=== PATIENT | male | born 1970 | race American Indian/Alaskan Native ===

== ENCOUNTER 2016-12-01 09:52 | Emergency (ER) | payer BC ==
[2016-12-01 12:40] VITALS: BP 156/91
--- NOTE | 2016-12-01 13:11 | Emergency Department Report ---
Entered by MADAY REGALADO, acting as scribe for DAYA PENN PA. - General Chief Complaint: Upper Respiratory Infection Stated Complaint: CHEST PAIN /COLD SX Time Seen by Provider: 12/01/16 12:27 Source: patient Mode of arrival: Ambulatory Limitations: No Limitations - History of Present Illness Initial Comments: 46 y/o male with no significant PMHx, presents to the ED c/o productive cough with white sputum beginning 1 week ago and worsening 3 days ago. The patient states he has Hx of seasonal allergies. Associated symptoms of post-nasal drip, itchy throat, and ear pressure, but he denies night sweats, nausea, vomiting, SOB, wheezing, chest pain, abdominal pain, numbness, weakness, or headache. Patient has been taking OTC nyquil/dayquil for the symptoms with mild alleviation. MD Complaint: cough (productive with white sputum) -: week(s) (1 week ago, became worse 3 days ago) Severity scale (0 -10): 7 Consistency: constant Improves With: OTC cold medicine (Nyquil/Dayquil, mild alleviation) Worsens With: nothing Context: other (patient has Hx of seasonal allergies) Associated Symptoms: cough (productive with white sputum), other (post nasal drainage, itchy throat, ear pressure). denies: fever, chills, myalgias, diaphoresis, headache, nasal congestion, sore throat, stiff neck, chest pain, shortness of breath, abdominal pain, nausea, vomiting, diarrhea, dysuria, rash, right sweats, ear pain Treatments Prior to Arrival: none - Related Data Previous Rx's Medication Instructions Recorded Last Taken Type Loratadine [Claritin] 10 mg PO DAILY #030 tablet 12/01/16 Unknown Rx Promethazine /Codeine 10 ml PO Q6H PRN #150 udc 12/01/16 Unknown Rx [Phenergan/Codeine 6.25-10 mg/5 ml] Allergies Allergy/AdvReac Type Severity Reaction Status Date / Time No Known Allergies Allergy Unverified 12/01/16 09:59 ED Review of Systems Comment: All other systems reviewed and negative Constitutional: denies: chills, fever ENT: other (ear pressure, itchy throat). denies: ear pain, throat pain Respiratory: cough (productive cough with white sputum). denies: shortness of breath, wheezing Cardiovascular: denies: chest pain Endocrine: denies: excessive sweating Gastrointestinal: denies: abdominal pain, nausea, vomiting, diarrhea Genitourinary: denies: dysuria Skin: denies: rash Neurological: denies: headache, weakness, numbness ED Past Medical Hx - Past Medical History Previous Medical History?: No - Surgical History Past Surgical History?: No - Social History Smoking Status: Never Smoker Substance Use Type: None - Medications Home Medications: Home Medications Medication Instructions Recorded Confirmed Last Taken Type Loratadine [Claritin] 10 mg PO DAILY #030 tablet 12/01/16 Unknown Rx Promethazine /Codeine 10 ml PO Q6H PRN #150 udc 12/01/16 Unknown Rx [Phenergan/Codeine 6.25-10 mg/5 ml] ED Physical Exam - General Limitations: No Limitations - Other Other exam information: GENERAL: Patient is alert and oriented x 3. No apparent distress, normal gait, atraumatic. HEAD: Head is normocephalic and atraumatic. EYES: Extraocular movements are intact. Pupils are equal, round, and reactive to light and accommodation. EARS: Symmetrical, atraumatic, non tender, ear canal clear with moderate cerumen , tympanic membrane non inflamed. Gross auditory nml bilaterally. NOSE: Nose symmetrical, nontender. Nares appeared normal. MOUTH:Mouth is well hydrated and without lesions. Mucous membranes are moist. Uvula midline. Tongue not elevated. Posterior pharynx clear, no exudate or lesions. Tonsils are not erythematous or swollen. Patent airway. Noted is some post-nasal drainage. NECK: Supple. Non edematous, no carotid bruits. No lymphadenopathy or thyromegaly. LUNGS: Symmetrical with respiration. No wheezing, rales or crackles, CTAB. HEART: Regular rate and rhythm with normal S1/S2 present. No murmurs, rubs, or gallops. ABDOMEN: Soft, nondistended. Nontender to palpation on all quadrants. No organomegaly was noted. Positive bowel sounds. No CVA tenderness. EXTREMITIES/MUSCULOSKELETAL: No cyanosis, clubbing, rash, lesions or edema. Full ROM bilaterally. UE/LE Pulses 2+ bilaterally. LE and UE 5+ strength bilaterally SKIN: Warm and dry. No lesions, ulceration or induration present NEUROLOGIC: No focal deficit., ED Course Vital Signs 12/01/16 12/01/16 09:58 12:39 Temperature 98.4 F 98.3 F Pulse Rate 79 88 Respiratory 18 18 Rate Blood Pressure 136/85 Blood Pressure 156/91 [Left] O2 Sat by Pulse 98 100 Oximetry ED Medical Decision Making - Medical Decision Making Patient was evaluated by the provider in fast track. 46 y/o male presents complaining of productive cough with white sputum beginning 1 week ago and worsening 3 days ago. Patient notes Hx of seasonal allergies and similar symptoms. Imaging is not necessary following patient's exam and Hx. Discussed with patient to follow up with a PCP as referred, and to return to the ED if his symptoms return or worsen. Patient states understanding and will follow instructions. Vital signs of stable and patient is in no acute distress. ED Disposition Clinical Impression: URI (upper respiratory infection) Qualifiers: URI type: unspecified URI Qualified Code(s): J06.9 - Acute upper respiratory infection, unspecified Disposition: DISCHARGED TO HOME OR SELFCARE Is pt being admited?: No Does the pt Need Aspirin: No Condition: Stable Instructions: Viral Syndrome (ED) Additional Instructions: Please take medication as prescribed and follow up with her primary care provider if symptoms persist or get worse Prescriptions: Loratadine [Claritin] 10 mg PO DAILY #030 tablet Promethazine /Codeine [Phenergan/Codeine 6.25-10 mg/5 ml] 10 ml PO Q6H PRN #150 udc PRN Reason: cough Referrals: PRIMARY CARE, [Primary Care Provider] - 3-5 Days Forms: Work/School Release Form(ED) This documentation as recorded by the SABINE tafoya GRACE,accurately reflects the service I personally performed and the decisions made by ,DAYA PENN PA.
== END 2016-12-01 13:12 | disposition home or self-care (01) ==
LOC: ED 09:52
DX: J06.9 Acute upper respiratory infection, unspecified (principal)
CPT/HCPCS: 99282

== ENCOUNTER 2016-12-06 10:38 | Emergency (ER) | payer BC ==
[2016-12-06 12:11] VITALS: BP 138/85
--- NOTE | 2016-12-06 16:03 | Emergency Department Report ---
- General Chief Complaint: Upper Respiratory Infection Stated Complaint: COUGH AND COLD Time Seen by Provider: 12/06/16 16:01 Source: patient Mode of arrival: Ambulatory Limitations: No Limitations - History of Present Illness MD Complaint: fever, cough -: days(s) Associated Symptoms: chills, headache, cough. denies: stiff neck, shortness of breath, nausea, vomiting - Related Data Previous Rx's Medication Instructions Recorded Last Taken Type Loratadine [Claritin] 10 mg PO DAILY #030 tablet 12/01/16 Unknown Rx Promethazine /Codeine 10 ml PO Q6H PRN #150 udc 12/01/16 Unknown Rx [Phenergan/Codeine 6.25-10 mg/5 ml] Azithromycin [Zithromax TAB] 500 mg PO QDAY #6 tablet 12/06/16 Unknown Rx predniSONE [Deltasone] 50 mg PO QDAY #5 tab 12/06/16 Unknown Rx Allergies Allergy/AdvReac Type Severity Reaction Status Date / Time No Known Allergies Allergy Unverified 12/01/16 09:59 ED Review of Systems ROS: Stated complaint: COUGH AND COLD Other details as noted in HPI Constitutional: chills, fever Eyes: denies: eye pain, eye discharge, vision change ENT: denies: ear pain, throat pain Respiratory: cough (productive). denies: shortness of breath, SOB with exertion , SOB at rest, wheezing Cardiovascular: denies: chest pain, palpitations Endocrine: no symptoms reported Gastrointestinal: denies: abdominal pain, nausea, diarrhea Genitourinary: denies: urgency, dysuria Musculoskeletal: denies: back pain, joint swelling, arthralgia Skin: denies: rash, lesions Neurological: denies: headache, weakness, paresthesias Psychiatric: denies: anxiety, depression Hematological/Lymphatic: denies: easy bleeding, easy bruising ED Past Medical Hx - Past Medical History Previous Medical History?: No - Surgical History Past Surgical History?: No - Social History Smoking Status: Never Smoker Substance Use Type: None - Medications Home Medications: Home Medications Medication Instructions Recorded Confirmed Last Taken Type Loratadine [Claritin] 10 mg PO DAILY #030 tablet 12/01/16 Unknown Rx Promethazine /Codeine 10 ml PO Q6H PRN #150 udc 12/01/16 Unknown Rx [Phenergan/Codeine 6.25-10 mg/5 ml] Azithromycin [Zithromax TAB] 500 mg PO QDAY #6 tablet 12/06/16 Unknown Rx predniSONE [Deltasone] 50 mg PO QDAY #5 tab 12/06/16 Unknown Rx ED Physical Exam - General Limitations: No Limitations General appearance: alert, in no apparent distress - Head Head exam: Present: atraumatic, normocephalic - Eye Eye exam: Present: normal appearance - ENT ENT exam: Present: mucous membranes moist - Neck Neck exam: Present: normal inspection. Absent: tenderness, meningismus, lymphadenopathy - Respiratory Respiratory exam: Present: normal lung sounds bilaterally. Absent: respiratory distress, wheezes, rales, rhonchi, stridor - Cardiovascular Cardiovascular Exam: Present: regular rate - GI/Abdominal GI/Abdominal exam: Present: soft. Absent: distended, tenderness, guarding, rebound - Back Exam Back exam: Present: normal inspection. Absent: CVA tenderness (R), CVA tenderness (L) - Neurological Exam Neurological exam: Present: alert, oriented X3 ED Course Vital Signs 12/06/16 12:05 Temperature 99 F Pulse Rate 77 Respiratory 20 Rate Blood Pressure 138/85 O2 Sat by Pulse 99 Oximetry Critical care attestation.: If time is entered above; I have spent that time in minutes in the direct care of this critically ill patient, excluding procedure time. ED Disposition Clinical Impression: Upper respiratory infection Disposition: DISCHARGED TO HOME OR SELFCARE Is pt being admited?: No Condition: Good Instructions: Upper Respiratory Infection (ED) Prescriptions: Azithromycin [Zithromax TAB] 500 mg PO QDAY #6 tablet predniSONE [Deltasone] 50 mg PO QDAY #5 tab Referrals: PRIMARY CAREMD [Primary Care Provider] - 3-5 Days BRANDI HAY MD [Staff Physician] - 3-5 Days Forms: Work/School Release Form(ED)
== END 2016-12-06 16:21 | disposition home or self-care (01) ==
LOC: ED 10:38
DX: J06.9 Acute upper respiratory infection, unspecified (principal)
CPT/HCPCS: 99282

== ENCOUNTER 2017-04-17 06:51 | Emergency (ER) | payer BC, OTHER ==
[2017-04-17 07:07] VITALS: BP 139/88
--- NOTE | 2017-04-17 18:23 | Emergency Department Report ---
Entered by SANTOS HERRMANN, acting as scribe for BLAKE TSAI NP. ED Male HPI - General Chief complaint: Urogenital-Male Stated complaint: EMESIS/POSS STD Time Seen by Provider: 04/17/17 09:25 Source: patient Mode of arrival: Ambulatory Limitations: No Limitations - History of Present Illness Initial comments: This is a 46 y/o male, nontoxic, well nourished in appearance, no acute signs of distress presents with c/o itching and discolored penile/thigh region. Associated symptoms include rash under his penis, and itching. Patient stated the symptoms started 1 week ago. Patient denies any new sexual partner. They stated has been having one sexual partner for many years and his . Patient denies having symptoms of any STD or vaginal discharge. Patient also has a secondary complaint of intermittent nausea 3 weeks. She states that he 1 episode of vomit as well. Patient stated ever since he changed his diet to all fruits and water he developed nausea. Patient denies any abd pain, chest pain, shortness of breathe, fever, chills, headache, stiff neck, numbness, tingling. Patient also denies any dysuria, discharge, swelling, testicular pain, fever and chills. Patient currtenly denies any n/v. Patient stated he is able to keep food and water down. No alleviating or aggravating factors. NKDA. 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 MD Complaint: other (groin itch with redness and white colored) Onset/Timin -: week(s) Location: penis Radiation: none Severity: mild Consistency: constant Improves with: none Worsens with: none rash, other (itching, denies: chills, testicular pain). denies: discharge, swelling, urinary retention, blood in urine, dysuria, fever, nausea/vomiting, incontinence - Related Data Sexually active: Yes Previous Rx's Medication Instructions Recorded Last Taken Type Loratadine [Claritin] 10 mg PO DAILY #030 tablet 12/01/16 Unknown Rx Promethazine /Codeine 10 ml PO Q6H PRN #150 udc 12/01/16 Unknown Rx [Phenergan/Codeine 6.25-10 mg/5 ml] Azithromycin [Zithromax TAB] 500 mg PO QDAY #6 tablet 12/06/16 Unknown Rx predniSONE [Deltasone] 50 mg PO QDAY #5 tab 12/06/16 Unknown Rx Clotrimazole/Betamethasone Dip 45 gm TP BID 7 Days 04/17/17 Unknown Rx [Clotrimazole-Betamethasone Crm] Ondansetron [Zofran Odt] 4 mg PO Q8HR #8 tab.rapdis 04/17/17 Unknown Rx Allergies Allergy/AdvReac Type Severity Reaction Status Date / Time No Known Allergies Allergy Unverified 12/01/16 09:59 ED Review of Systems Comment: All other systems reviewed and negative Constitutional: denies: chills, fever Eyes: denies: eye pain, eye discharge, vision change ENT: denies: ear pain, throat pain Respiratory: denies: cough, shortness of breath, wheezing Cardiovascular: denies: chest pain, palpitations Endocrine: no symptoms reported Gastrointestinal: denies: nausea, vomiting Genitourinary: denies: dysuria, discharge, testicular pain, other (swelling) Musculoskeletal: denies: back pain, joint swelling, arthralgia Skin: rash (under penis), other (itching) Neurological: denies: headache, weakness, paresthesias Psychiatric: denies: anxiety, depression Hematological/Lymphatic: denies: easy bleeding, easy bruising ED Past Medical Hx - Past Medical History Previous Medical History?: No - Surgical History Past Surgical History?: No - Social History Smoking Status: Never Smoker Substance Use Type: None - Medications Home Medications: Home Medications Medication Instructions Recorded Confirmed Last Taken Type Loratadine [Claritin] 10 mg PO DAILY #030 tablet 12/01/16 Unknown Rx Promethazine /Codeine 10 ml PO Q6H PRN #150 udc 12/01/16 Unknown Rx [Phenergan/Codeine 6.25-10 mg/5 ml] Azithromycin [Zithromax TAB] 500 mg PO QDAY #6 tablet 12/06/16 Unknown Rx predniSONE [Deltasone] 50 mg PO QDAY #5 tab 12/06/16 Unknown Rx Clotrimazole/Betamethasone Dip 45 gm TP BID 7 Days 04/17/17 Unknown Rx [Clotrimazole-Betamethasone Crm] Ondansetron [Zofran Odt] 4 mg PO Q8HR #8 tab.rapdis 04/17/17 Unknown Rx ED Physical Exam - General Limitations: No Limitations General appearance: alert, in no apparent distress - Head Head exam: Present: atraumatic, normocephalic, normal inspection - Eye Eye exam: Present: normal appearance, PERRL, EOMI. Absent: scleral icterus, conjunctival injection, nystagmus, periorbital swelling, periorbital tenderness Pupils: Present: normal accommodation - ENT ENT exam: Present: normal exam, normal orophraynx, mucous membranes moist, TM's normal bilaterally, normal external ear exam - Neck Neck exam: Present: normal inspection, full ROM. Absent: tenderness, meningismus, lymphadenopathy, thyromegaly - Respiratory Respiratory exam: Present: normal lung sounds bilaterally. Absent: wheezes, rales, rhonchi - Cardiovascular Cardiovascular Exam: Present: regular rate, normal rhythm, normal heart sounds. Absent: bradycardia, tachycardia, irregular rhythm, systolic murmur, diastolic murmur, rubs, gallop - GI/Abdominal GI/Abdominal exam: Present: soft, normal bowel sounds. Absent: tenderness, guarding, rebound - Rectal Rectal exam: Present: deferred - exam: Present: normal inspection. Absent: testicular tenderness, urethral discharge, scrotal swelling, vertical testicular lie, circumcision External exam: Present: normal external exam, erythema, other (groin and penile erythema and itching). Absent: swelling, lesions, lacerations, ecchymosis, bleeding - Extremities Exam Extremities exam: Present: normal inspection, full ROM, normal capillary refill. Absent: tenderness, pedal edema, joint swelling, calf tenderness - Back Exam Back exam: Present: normal inspection, full ROM. Absent: tenderness, CVA tenderness (R), CVA tenderness (L), muscle spasm, paraspinal tenderness, vertebral tenderness, rash noted - Neurological Exam Neurological exam: Present: alert, oriented X3, CN II-XII intact, normal gait, reflexes normal - Psychiatric Psychiatric exam: Present: normal affect, normal mood - Skin Skin exam: Present: warm, dry, intact, normal color ED Course Vital Signs 04/17/17 07:02 Temperature 98.6 F Pulse Rate 100 H Respiratory 18 Rate Blood Pressure 139/88 O2 Sat by Pulse 97 Oximetry - Reevaluation(s) Reevaluation #1: 04/17/17 09:58 Patient is able speak full sentences with no signs of distress. ED Medical Decision Making - Medical Decision Making ED course; this is a 46-year-old male presents to ED with TINEA CRURIS 1- patient was examined myself. There are no obvious signs of ulcers or penile discharge. No testicular pain. Patient symptoms are consistent with jock itch 2- patient be treated with Clotrimazole at discharge. Patient also received Zofran at discharge for nausea. 3- patient was instructed to follow up with his primary care doctor in 3-5 days or symptoms worsen and continue return to emergency room as soon as possible. 4- At time time of discharge, the patient does not seem toxic or ill in appearance. No acute signs of distress noted. Patient agrees to discharge treatment plan of care. No further questions noted by the patient. ED Disposition Clinical Impression: Tinea cruris Disposition: DC-01 TO HOME OR SELFCARE Is pt being admited?: No Does the pt Need Aspirin: No Condition: Stable Instructions: Jock Itch (ED), Betamethasone/Clotrimazole (On the skin), Ondansetron (By mouth) Additional Instructions: follow up with your primary care doctor in 3-5 days or symptoms worsen and continue return to emergency room as soon as possible. Take Lortisone as prescribed Prescriptions: Clotrimazole/Betamethasone Dip [Clotrimazole-Betamethasone Crm] 45 gm TP BID 7 Days Ondansetron [Zofran Odt] 4 mg PO Q8HR #8 tab.rapdis Referrals: PRIMARY CARE, [Primary Care Provider] - 3-5 Days MARIAJOSE TOLEDO MD [Staff Physician] - 3-5 Days [facility] [Outside] - 3-5 Days [facility] [Outside] - 3-5 Days Forms: Work/School Release Form(ED) This documentation as recorded by the ALIZE tafoya ELIZABETH,accurately reflects the service I personally performed and the decisions made by me,BLAKE TSAI, MARYBETH.
== END 2017-04-17 10:13 | disposition home or self-care (01) ==
LOC: ED 06:51
DX: B35.6 Tinea cruris (principal)
CPT/HCPCS: 99282

== ENCOUNTER 2017-04-19 07:28 | Inpatient (IN) | payer OTHER ==
[2017-04-19 08:03] LABS: Basophils % (Auto) 0.7 % (0.0-1.8); Eosinophils % (Auto) 0.2 % (0.0-4.3); Hematocrit 45.7 % (35.5-45.6); Hemoglobin 14.8 gm/dl (11.8-15.2); Mean Corpuscular HGB Conc 32 % (32-34); Mean Corpuscular Hemoglobin 30 pg (28-32); Mean Corpuscular Volume 93 fl (84-94); Platelet Count 202 K/mm3 (140-440); Red Blood Count 4.94 M/mm3 (3.65-5.03); White Blood Count 10.8 K/mm3 (4.5-11.0)
[2017-04-19 08:18] LABS: Bilirubin,Urine NEG (Negative); Blood,Urine SM (Negative); Ketones,Urine 80 mg/dL (Negative); Leukocyte Esterase,Urine NEG (Negative); Nitrite,Urine NEG (Negative); Urobilinogen,Urine < 2.0 mg/dL (<2.0)
[2017-04-19 08:21] LABS: BUN/Creatinine Ratio 20.47; Chloride 86.9 mmol/L (98-107); Potassium 5.2 mmol/L (3.6-5.0)
[2017-04-19] MEDS ORDERED: NACL 0.9% 1000 ML 1,000 ML IV ONE (09:30)
[2017-04-19] MEDS ORDERED: D50W (25GM) IV PRN ×2 (09:31→17:07)
--- NOTE | 2017-04-19 09:37 | Emergency Department Report ---
HPI - General Chief Complaint: Nausea/Vomiting/Diarrhea Time Seen by Provider: 04/19/17 09:21 - HPI HPI: Room 2 The patient is a 46-year-old male presenting with a chief complaint of weight loss nausea and vomiting. The patient states his loss approximate 75 pounds over the past 3 months. The patient states he chooses to change diet to include lots of fruits and water. The patient states for the past 2 months has had frequent nausea vomiting. Patient admits to polydipsia and polyuria. Patient denies having a medical history Location: [see above] Duration: 3 Months Quality: Nausea vomiting Severity: Moderate Modifying factors: [see above] Context: [see above] Mode of transportation: Unknown ED Past Medical Hx - Past Medical History Previous Medical History?: Yes Additional medical history: STD exposure, Jock itch - Surgical History Past Surgical History?: No - Family History Family history: no significant - Social History Smoking Status: Never Smoker Substance Use Type: None (denies illicit drug use), Prescribed - Medications Home Medications: Home Medications Medication Instructions Recorded Confirmed Last Taken Type Loratadine [Claritin] 10 mg PO DAILY #030 tablet 12/01/16 Unknown Rx Promethazine /Codeine 10 ml PO Q6H PRN #150 udc 12/01/16 Unknown Rx [Phenergan/Codeine 6.25-10 mg/5 ml] Azithromycin [Zithromax TAB] 500 mg PO QDAY #6 tablet 12/06/16 Unknown Rx predniSONE [Deltasone] 50 mg PO QDAY #5 tab 12/06/16 Unknown Rx Clotrimazole/Betamethasone Dip 45 gm TP BID 7 Days 04/17/17 Unknown Rx [Clotrimazole-Betamethasone Crm] Ondansetron [Zofran Odt] 4 mg PO Q8HR #8 tab.rapdis 04/17/17 Unknown Rx ED Review of Systems ROS: Stated complaint: N/V Other details as noted in HPI Comment: All other systems reviewed and negative Constitutional: other (weight loss). denies: chills, fever Eyes: denies: eye pain, eye discharge, vision change ENT: denies: ear pain, throat pain Respiratory: denies: cough, shortness of breath, wheezing Cardiovascular: denies: chest pain, palpitations Endocrine: increased thirst, increased urine, unexplained weight loss Gastrointestinal: nausea, vomiting Genitourinary: frequency Musculoskeletal: denies: back pain, joint swelling, arthralgia Skin: denies: rash, lesions Neurological: denies: headache, weakness, paresthesias Psychiatric: denies: anxiety, depression Hematological/Lymphatic: denies: easy bleeding, easy bruising Physical Exam - Physical Exam Vital Signs: Vital Signs 04/19/17 04/19/17 04/19/17 07:37 08:42 08:45 Temperature 97.4 F L Pulse Rate 109 H 94 H Respiratory 18 14 Rate Blood Pressure 132/98 140/97 Blood Pressure [Left] O2 Sat by Pulse 99 99 100 Oximetry 04/19/17 04/19/17 04/19/17 08:47 08:49 08:50 Temperature Pulse Rate 100 H 102 H 92 H Respiratory 12 13 11 L Rate Blood Pressure 140/97 140/97 135/95 Blood Pressure [Left] O2 Sat by Pulse 100 99 99 Oximetry 04/19/17 04/19/17 08:53 09:20 Temperature 98.4 F Pulse Rate 101 H 97 H Respiratory 18 17 Rate Blood Pressure 135/95 Blood Pressure 140/98 [Left] O2 Sat by Pulse 99 99 Oximetry Physical Exam: GENERAL: The patient is well-developed well-nourished male lying on stretcher not appearing to be in acute distress. [] HEENT: Normocephalic. Atraumatic. Extraocular motions are intact. Patient has moist oral mucous membranes. NECK: Supple. Trachea midline CHEST/LUNGS: Clear to auscultation. There is no respiratory distress noted. HEART/CARDIOVASCULAR: Regular. There is no tachycardia. There is no gallop rub or murmur. ABDOMEN: Abdomen is soft, nontender. Patient has normal bowel sounds. There is no abdominal distention. SKIN: There is no rash. There is no edema. There is no diaphoresis. NEURO: The patient is awake, alert, and oriented. The patient is cooperative. The patient has normal speech MUSCULOSKELETAL: There is no evidence of acute injury. ED Course Vital Signs 04/19/17 04/19/17 04/19/17 07:37 08:42 08:45 Temperature 97.4 F L Pulse Rate 109 H 94 H Respiratory 18 14 Rate Blood Pressure 132/98 140/97 Blood Pressure [Left] O2 Sat by Pulse 99 99 100 Oximetry 08/04/2804/19/17 04/19/17 08:47 08:49 08:50 Temperature Pulse Rate 100 H 102 H 92 H Respiratory 12 13 11 L Rate Blood Pressure 140/97 140/97 135/95 Blood Pressure [Left] O2 Sat by Pulse 100 99 99 Oximetry 04/19/17 04/19/17 08:53 09:20 Temperature 98.4 F Pulse Rate 101 H 97 H Respiratory 18 17 Rate Blood Pressure 135/95 Blood Pressure 140/98 [Left] O2 Sat by Pulse 99 99 Oximetry ED Medical Decision Making - Lab Data Result diagrams: 04/19/17 07:49 04/19/17 07:49 Laboratory Tests 04/19/17 04/19/17 04/19/17 07:49 07:49 08:09 WBC 10.8 RBC 4.94 Hgb 14.8 Hct 45.7 H MCV 93 MCH 30 MCHC 32 RDW 13.0 L Plt Count 202 Lymph % (Auto) 10.4 L [place] % (Auto) 7.9 H Eos % (Auto) 0.2 Baso % (Auto) 0.7 Lymph # 1.1 L [place] # 0.9 H Eos # 0.0 Baso # 0.1 Seg Neutrophils % 80.8 H Seg Neutrophils # 8.7 H Sodium 141 Potassium 5.2 H Chloride 86.9 L Carbon Dioxide 20 L Anion Gap 39 BUN 43 H Creatinine 2.1 H Estimated GFR 41 BUN/Creatinine Ratio 20.47 Glucose 834 H* Calcium 10.0 Urine Color Straw Urine Turbidity Clear Urine pH 5.0 Ur Specific [place] 1.025 Urine Protein 30 mg/dl Urine Glucose (UA) >=500 Urine Ketones 80 Urine Blood Sm Urine Nitrite Neg Urine Bilirubin Neg Urine Urobilinogen < 2.0 Ur Leukocyte Esterase Neg Urine WBC (Auto) 1.0 Urine RBC (Auto) 2.0 Laboratory Tests 04/19/17 04/19/17 04/19/17 07:49 07:49 08:09 WBC 10.8 RBC 4.94 Hgb 14.8 Hct 45.7 H MCV 93 MCH 30 MCHC 32 RDW 13.0 L Plt Count 202 Lymph % (Auto) 10.4 L [place] % (Auto) 7.9 H Eos % (Auto) 0.2 Baso % (Auto) 0.7 Lymph # 1.1 L [place] # 0.9 H Eos # 0.0 Baso # 0.1 Seg Neutrophils % 80.8 H Seg Neutrophils # 8.7 H VBG pH Sodium 141 Potassium 5.2 H Chloride 86.9 L Carbon Dioxide 20 L Anion Gap 39 BUN 43 H Creatinine 2.1 H Estimated GFR 41 BUN/Creatinine Ratio 20.47 Glucose 834 H* Calcium 10.0 Urine Color Straw Urine Turbidity Clear Urine pH 5.0 Ur Specific [place] 1.025 Urine Protein 30 mg/dl Urine Glucose (UA) >=500 Urine Ketones 80 Urine Blood Sm Urine Nitrite Neg Urine Bilirubin Neg Urine Urobilinogen < 2.0 Ur Leukocyte Esterase Neg Urine WBC (Auto) 1.0 Urine RBC (Auto) 2.0 04/19/17 09:29 WBC RBC Hgb Hct MCV MCH MCHC RDW Plt Count Lymph % (Auto) [place] % (Auto) Eos % (Auto) Baso % (Auto) Lymph # [place] # Eos # Baso # Seg Neutrophils % Seg Neutrophils # VBG pH 7.294 L Sodium Potassium Chloride Carbon Dioxide Anion Gap BUN Creatinine Estimated GFR BUN/Creatinine Ratio Glucose Calcium Urine Color Urine Turbidity Urine pH Ur Specific [place] Urine Protein Urine Glucose (UA) Urine Ketones Urine Blood Urine Nitrite Urine Bilirubin Urine Urobilinogen Ur Leukocyte Esterase Urine WBC (Auto) Urine RBC (Auto) - Differential Diagnosis DKA, hyperglycemia, new-onset diabetes Critical care attestation.: If time is entered above; I have spent that time in minutes in the direct care of this critically ill patient, excluding procedure time. ED Disposition Clinical Impression: DKA (diabetic ketoacidoses), Diabetes mellitus, new onset, Acute renal failure , Dehydration Disposition: OP ADMIT IP TO THIS HOSP Is pt being admited?: Yes Does the pt Need Aspirin: No (renal failure) Condition: Fair Instructions: Diabetic Ketoacidosis (ED) Referrals: PRIMARY CARE, [Primary Care Provider] - 3-5 Days Time of Disposition: 09:38 (hospitalist paged)
[2017-04-19] MEDS ORDERED: NovoLIN R 100 UNITS in NACL 0.9% 99 ML IV SCH (10:00)
--- NOTE | 2017-04-19 10:07 | Admit Criteria Form ---
Admission Criteria Documentation: INTENSIVE CARE UNIT ADMISSION Intensive Care Admission Guidelines ( Place 'X' for any and all applicable criteria): Admission to ICU may be indicated when need is demonstrated by ANY ONE of the following (1)(2)(3)(4)(5)(6)(7)(8)(9) : [ ]I. Vital sign abnormalities, including ANY ONE of the following: [ ]a) Systolic arterial pressure less than 90 mm Hg, or 20 mm Hg below the patient's usual pressure [ ]b) Diastolic arterial pressure greater than 120 mm Hg [ ]c) Mean arterial pressure less than 70 mm Hg [A] [ ]d) Pulse less than 40 or greater than 140 beats per minute (in adult) [ ]e) Respiratory rate greater than 35 or less than 8 breaths per minute [ ]II. Laboratory findings (new), including ANY ONE of the following (10): [ ]a) Saturation of arterial oxygen less than 88% or partial pressure of oxygen less than 60 mm Hg (8.0 kPa) despite oxygen supplementation [ ]b) Rising partial pressure of carbon dioxide with respiratory acidosis [ ]c) pH less than 7.2 or greater than 7.65 [ ]d) Serum glucose greater than 800 mg/dL (44.4 mmol/L) [ ]e) Serum sodium less than 110 mEq/L (mmol/L) or greater than 160 mEq/L (mmol/L) [ ]f) Serum potassium less than 2 mEq/L (mmol/L) or greater than 7 mEq /L (mmol/L) [ ]g) Serum calcium greater than 15 mg/dL (3.75 mmol/L) [ ]h) Serum phosphorus less than 1 mg/dL (0.32 mmol/L) [ ]i) Toxic drug level or poisoning causing or likely to cause neurologic or Hemodynamic instability [ ]j) Less severe laboratory abnormalities contributing to ANY ONE of the following: [ ]i) Seizure [ ]ii) Altered mental status [ ]iii) Muscle weakness [ ]iv) Arrhythmias [ ]v) Hemodynamic instability [ ]vi) Other significant clinical manifestations [ ]III. Electrocardiogram (or cardiac monitoring) findings, including ANY ONE of the following: [ ]a) Inherently unstable or life-threatening arrhythmia (eg, sustained ventricular tachycardia, ventricular fibrillation, asystole) [ ]b) Arrhythmia causing severe hypotension (eg, bradycardia, tachycardia) [ ]c) Complete heart block causing severe hypotension [ ]d) Other findings indicative of a need for intensive care (eg , [place]) [ ]IV.Physical findings, including ANY ONE of the following: [ ]a) Threatened airway [ ]b) Sudden altered mental status [ ]c) Repeated or prolonged seizures [ ]d) Coma [ ]e) New-onset anuria (urine output <0.1 mL/kg/hr over 4 h) [ ]f) Cyanosis (new) [ ]g) Cardiac tamponade [ ]h) Status post respiratory or cardiac arrest [ ]i) Severe krishnamurthy (eg, partial thickness krishnamurthy over more than 10% of body surface, third-degree krishnamurthy) [ ]j) Findings consistent with abdominal emergency (eg, peritoneal signs) [ ]V.Imaging findings, such as dissecting aneurysm or ruptured viscus [ ].Specific intervention or monitoring needed, as indicated by ANY ONE of the following: [ ]a) New need for assisted ventilation, invasive or noninvasive(11) [ ]b) New need for intubation (eg, to protect airway) [ ]c) New tracheostomy (less than 48 hours old) [ ]d) Hourly vital signs or neurologic checks [ ]e) Pulmonary artery line monitoring needed [ ]f) Continuous arterial line monitoring needed [ ]g) Continuous IV vasoactive drugs [ ]h) Continuous IV antiarrhythmics [ ]i) Large volume IV fluid resuscitation (eg, greater than 6 L per day ) [ ]j) Large or rapid transfusion needs (eg, more than 6 units within 24 hours) [ ]k) High-risk IV treatment, such as bolus IV medicatns or mannitol infusion [ ]l) Acute cardiac pacing [ ]m) Intra-aortic balloon pump [ ]n) Ventricular assist device [ ]o) Cardioversion [ ]p) Pericardiocentesis [ ]q) Hemodialysis in unstable patient [ ]r) Continuous renal replacement therapy (eg, continuous veno-venous hemofiltration) [ ]s) Peritoneal dialysis initiation [ ]t) Emergency bronchoscopic therapy (eg, for hemoptysis) [ ]u) Emergency endoscopic therapy for bleeding [ ]v) Balloon tamponade for variceal bleeding [ ]w) Intracranial pressure monitoring or tissue oxygen monitoring [ ]x) Ventriculostomy monitoring [ ]y) Treatment of ongoing seizures [ ]z) Induced hypothermia or coma [ ]aa) Ongoing frequent testing and treatment for acute conditions, including ANY ONE of the following: [ ]i) Correction of severe metabolic acidosis/ alkalosis [ ]ii). Severe fluid overload [ ]iii) Cerebral edema [ ]iv) Monitoring or suctioning for respiratory insufficiency or acidosis [ ]v) Monitoring for active bleeding [ ]bb) Rapid desensitization for high-risk hypersensitivity reaction to required medication (eg, penicillin)(12) [ ]cc) Other need for treatment or monitoring not available outside the ICU [ ]VII.Cardiology diagnoses or procedures, including ANY ONE of the following (13)(14)(15)(16)(17): [ ]a) Chest pain with ANY ONE of the following: [ ]i) Hemodynamic instability [ ]ii) Suspicion of diagnoses needing ICU care (eg, aortic dissection) [ ]iii) New unstable or symptomatic arrhythmia or ECG finding (eg, ventricular tachycardia, ventricular fibrillation, advanced heart block) [ ]iv) Syncope or near-syncope [ ]v) SBP less than 100 mm Hg [ ]vi) Pulmonary edema thought to be due to ischemia [ ]vii) New or worsening mitral regurgitation murmur, S3 , or rales [ ]b) Acute [place] with complications as indicated by ANY ONE of the following: [ ]i) Persistent chest pain [ ]ii) Hemodynamic instability [ ]iii) New unstable or symptomatic arrhythmia or ECG finding (eg, ventricular tachycardia, ventricular fibrillation, advanced heart block) [ ]iv) Syncope or near-syncope [ ]v) Pulmonary edema thought to be due to ischemia [ ]vi) New or worsening mitral regurgitation murmur, S3 , or rales [ ]vii) New-onset bundle branch block [ ]viii) Hemorrhagic complication (eg, intracranial or access site bleed following thrombolysis) [ ]c) Cardiac arrhythmia or conduction defect with Hemodynamic instability [ ]d) Complication of cardiac ablation, including ANY ONE of the following(18): [ ]i) Pericardial tamponade [ ]ii) Hemodynamic instability [ ]iii) Thromboembolic stroke [ ]iv) Aortic valve injury [ ]v) Vascular injuries [ ]vi) Esophageal perforation [ ]vii) Severe arrhythmia [ ]viii) Air embolism [ ]ix) Other severe complication [ ]e) Cardiogenic shock [ ]f) Hypertensive emergency, with need for ANY ONE of the following(19): [ ]i) IV antihypertensive therapy [ ]ii) Invasive hemodynamic monitoring (eg, arterial line) [ ]g) Pericardial tamponade [ ]h) Severe heart failure, with ANY ONE of the following(15): [ ]i) Respiratory failure [ ]ii) Cardiogenic shock [ ]iii) Severe arrhythmias [ ]iv) Evidence of cardiac ischemia [ ]i Myocarditis, with ANY ONE of the following [ ]i) Hemodynamic instability [ ]ii) Respiratory failure [ ]iii) Severe arrhythmias [ ]iv) Need for cardiac assist device (eg, left ventricular assist device or extracorporeal membrane oxygenator) [ ]j) Status post cardiac arrest(20) [ ]VIII. Cardiovascular Surgery diagnoses or procedures, including ANY ONE of the following.(21)(22): [ ]a) Acute aortic dissection [ ]b) Aortic surgery for ANY ONE of the following: [ ]i) Thoracic aneurysm [ ]ii) Abdominal aneurysm with ANY ONE of the following(23): [ ]1) Emergency repair [ ]2) Severe cardiopulmonary disease [ ]3) Dialysis-dependent renal failure [ ]4) Need for IV blood pressure control [ ]5) Need for ongoing ventilatory support [ ]6) Perioperative complications, including ANY ONE of the following: [ ]A. Sustained Hemodynamic instability [ ]B. Cardiac ischemia or arrhythmia [ ]C. Hypothermia (less than 35 degrees C (95 degrees F)) [ ]D. Blood transfusion greater than 3 L [ ]iii) Aortic coarctation operative excision or repair [ ]iv) Aortofemoral or aortoiliac bypass with ANY ONE of the following: [ ]1) Continued intubation [ ]2) Hemodynamic instability [ ]3) Need for IV blood pressure control [ ]4) Severe cardiopulmonary disease [ ]c) Cardiac surgery [ ]d) Carotid endarterectomy or stent placement with ANY ONE of the following: [ ]i) Blood pressure <100/60 mm Hg or >160/90 mm Hg despite 4 h of postanesthetic management [ ]ii) New or progressive neurologic defect [ ]iii) Chest pain [ ]iv) Continued intubation [ ]v) Heart failure [ ]vi) Airway compromise by hematoma or vocal cord paralysis [ ]vi) Need for IV blood pressure control [ ]e) Heart transplant [ ]f) Infrainguinal peripheral vascular surgery with ANY ONE of the following: [ ]i) Hemodynamic instability [ ]ii) Acute complications such as persistent chest pain or respiratory distress [ ]iii) Requirement for IV antiarrhythmic or vasoactive agent [ ]iv) Requirement for pulmonary artery catheter [ ]v) Severe hypertension despite 6 hours of recovery room management [ ]g) Complications of any surgery requiring ICU intervention as indicated by ANY ONE of the following(24): [ ]i) Hemodynamic instability [ ]ii) Myocardial infarction with complications (eg, severe arrhythmia, hypotension) [ ]iii) Excessive bleeding or severe coagulopathy [ ]iv) Respiratory failure [ ]v) Renal failure [ ]vi) Airway instability or obstruction [ ]vii) Neurologic deterioration [ ]viii) Infection with likelihood of sepsis syndrome or significant fluid shifts [ ]IX.Endocrinology diagnoses or procedures, including ANY ONE of the following(25)(26): [ ]a) Adrenal crisis with Hemodynamic instability(27) [ ]b) Pheochromocytoma with ANY ONE of the following(28): [ ]i) Hypertensive crisis [ ]ii) Postoperative Hemodynamic instability [ ]iii) Need for IV vasoactive therapy [ ]iv) Need for invasive arterial or central venous pressure monitoring [ ]v) Organ ischemia [X]c) Diabetic hyperosmolar state []d) Diabetic ketoacidosis with ANY ONE of the following: []i) Serum pH less than 7.10 or bicarbonate level less than 10 mEq/L (mmol/L) [ ]ii) Rapidly changing electrolytes [ ]iii) Hypotension [X]iv) Requirement for large-volume fluid resuscitation [ ]v) Respiratory insufficiency [ ]vi) Life-threatening cardiac dysrhythmias [ ]vii) Obtundation [ ]viii) Severe precipitating condition such as sepsis, stroke, or acute [place] [ ]e) Severe hypoglycemia requiring continuous glucose infusion with frequent adjustment or glucagon infusion [ ]f) Hyperthyroidism associated with thyroid storm (also known as thyrotoxic crisis)(29) [ ]g) Myxedema with life-threatening neurologic, cardiovascular, electrolyte, or renal dysfunction(29) [ ]h) Diabetes insipidus that cannot be controlled with routine medication (30) [ ]X. Gastroenterology diagnoses or procedures, including ANY ONE of the following: [ ]a) Esophageal perforation(31) [ ]b) Severe caustic esophageal injury(31) [ ]c) Liver disease complications with ANY ONE of the following(32): [ ]i) Severe hepatic encephalopathy (eg, stage 3 (somnolent) or higher) [ ]ii) Type 1 hepatorenal syndrome [ ]iii) Other cirrhosis-associated causes of acute renal failure ( eg, severe hypovolemia, acute tubular necrosis, abdominal compartment syndrome) [ ]iv) Hemodynamic instability [ ]v) Respiratory insufficiency due to severe ascites [ ]vi) Sepsis due to spontaneous bacterial peritonitis [ ]d) Fulminant hepatic failure when aggressive intervention or transplant is anticipated (32) [ ]e) Gastrointestinal hemorrhage (upper or lower) with ANY ONE of the following(33)(34): [ ]i) Active ongoing bleeding [ ]ii) Transfusion requirement greater than 2 units of packed red cells [ ]iii) Bleeding ulcer or nonbleeding visible vessel seen on endoscopy [ ]iv) Bleeding ulcer, visible blood vessel, bleeding (or recently bleeding) esophageal varices seen on endoscopy [ ]v) Hypotension [ ]vi) Syncope [ ]vii) Coagulopathy [ ]viii) Hepatic cirrhosis [ ]ix) Abnormal mental status [ ]x) Unstable comorbid condition or end organ dysfunction [ ]xi) Ischemia due to poor perfusion [ ]xii) Need for hemodynamic monitoring (eg, for patients with heart failure or valvular disease) [ ]f) Severe pancreatitis indicated by ANY ONE of the following (35)(36): [ ]i) Requirement for aggressive fluid resuscitation [ ]ii) Life-threatening electrolyte abnormality [ ]iii) SBP less than 90 mm Hg [ ]iv) Persistent tachycardia greater than 120 beats per minute [ ]v) Patients at high risk of rapid deterioration, including ANY ONE of the following: [ ]1) Calculated [place] score greater than 8 [ ]2) Age older than 55 years [ ]3) BMI greater than 30 [ ]4) Greater than 30% pancreatic necrosis on CT scan [ ]5) Admission hematocrit greater than 47% (0.47) [ ]vi) Organ failure as indicated by ANY ONE of the following: [ ]1) Serum creatinine greater than 1.9 mg/dL (168 micromoles/L) [ ]2) Requirement for mechanical ventilation [ ]3) Urine output less than 50 mL/hour [ ]4) Arterial partial pressure of oxygen less than 60 mm Hg (8.0 kPa) despite supplemental oxygen [ ]5) PiO2/FiO2 ratio less than 300 [ ]vii) Expanding pseudocyst [ ]viii) Infected pancreas [ ]ix) Pleural effusion [ ]x) Encephalopathy [ ]xi) Severe comorbidities [ ]XI. General Surgery diagnoses or procedures, including ANY ONE of the following (9)(24)(37): [ ]a) Acute abdominal catastrophe (eg, ischemic bowel, perforated viscus, abdominal compartment syndrome) [ ]b) Complications of any surgery requiring ICU intervention as indicated by ANY ONE of the following: [ ]i) Hemodynamic instability [ ]ii) [place] with complications (eg, severe arrhythmia, hypotension) [ ]iii) Excessive bleeding or severe coagulopathy [ ]iv) Respiratory failure [ ]v) Renal failure [ ]vi) Airway instability or obstruction [ ]vii) Neurologic deterioration [ ]viii) Infection with likelihood of sepsis syndrome or significant fluid shifts [ ]c) Multiple trauma with complicating features as indicated by ANY ONE of the following(38): [ ]i) Impending acute respiratory failure due to lung contusion, unstable chest wall, aspiration, or hemorrhage [ ]ii) Facial or neck injury threatening airway patency [ ]iii) Cardiac contusion [ ]iv) Pericardial effusion [ ]v) Bronchial tear [ ]vi) Hemodynamic instability [ ]vii) Rhabdomyolisis requiring large volume IV fluid resuscitation [ ]viii)Other significant complicating feature [ ]d) Organ transplant(39)(40) [ ]e) Esophagectomy(31) [ ]f) Whipple procedure [ ]g) Preoperative or postoperative patients requiring ICU intervention, such as hemodynamic optimization, pulmonary artery monitoring, mechanical ventilation, or extensive nursing care [ ]h) Obesity surgery patients with ANY ONE of the following(41): [ ]i) ICU management needs for comorbid conditions, such as sleep apnea or airway management needs [ ]ii) Failed postoperative extubation [ ]iii) Intraoperative complications [ ]XII. Nephrology diagnoses or procedures, including acute, or acute on chronic renal insufficiency with ANY ONE of the following(44)(45): [ ]a) Life-threatening electrolyte or acid-base disorder [ ]b) Acute pulmonary edema [ ]c) Hypotension or significant volume depletion [ ]d) Hypertensive emergency [ ]e) Underlying critical illness contributing to renal failure (eg, septic shock, hepatorenal syndrome) [ ]f) Need for continuous renal replacement therapy [ ]XIII. Neurology diagnoses or procedures, including ANY ONE of the following (46)(47) [B] : [ ]a) Intracranial hypertension requiring ANY ONE of the following(49 ): [ ]i) Induced barbiturate coma [ ]ii) Pharmacologic paralysis or deep sedation and mechanical ventilation [ ]iii) Intracranial pressure or cerebral perfusion pressure monitoring [ ]iv) IV mannitol or hypertonic saline [ ]v) Frequent serum osmolality measurements [ ]b) Seizures with ANY ONE of the following(50): [ ]i) Status epilepticus [ ]ii) Airway compromise requiring or likely to require mechanical ventilation [ ]iii) Severe electrolyte abnormalities causing seizures [ ]c) Progressive acute neurologic dysfunction requiring or likely to require ANY ONE of the following: [ ]i) Mechanical ventilation [ ]ii) Intracranial pressure or cerebral perfusion pressure monitoring [ ]d) Meningitis with obtundation or respiratory insufficiency [C])(51 ) [ ]e) Stroke with ANY ONE of the following(52)(53): [ ]i) Need for observation after thrombolysis [ ]ii) Altered mental status [ ]iii) Need for mechanical ventilation [ ]iv) Elevated intracranial pressure [ ]v) Hypertensive emergency [ ]vi) High risk of progressive infarction or deterioration based on CT scan or MRI [ ]vii) Hemorrhage [ ]f) Acute coma [ ]g) Acute spontaneous intracranial hemorrhage(53)(54) [ ]h) Drug ingestion with ANY ONE of the following(56)(57): [ ]i) Hemodynamic instability [ ]ii) Respiratory depression (partial pressure of carbon dioxide >45 mm Hg (6.0 kPa), new) [ ]iii) Patient requires or is likely to require mechanical ventilation. [ ]iv) Arrhythmias [ ]v) Seizures [ ]vi) Altered mental status ([place] coma scale score less than 12, new) [ ]vii) Significant risk for acute deterioration (eg, toxic level of hypotension or arrhythmia-producing drug) [ ]viii) Drug-induced hypothermia or hyperthermia [ ]ix) Increasing metabolic acidosis [ ]x) Severe hypoglycemia requiring glucose infusion with frequent adjustment or glucagon administration [ ]xi) Ongoing antidote administration (eg, continuous naloxone infusion, organophosphate toxicity treatment) [ ]xii) Emergency intervention need (eg, dialysis, hemoperfusion, restraints) [ ]i) Brain with preparation for organ donation [ ]j) Traumatic brain injury with ANY ONE of the following(55): [ ]i) Altered mental status (eg, new onset [place] coma scale score less than 10) [ ]ii) Cerebral edema [ ]iii) Cerebral hemorrhage [ ]iv) Increased intracranial pressure [ ]XIV. Neurosurgery diagnoses or procedures, including ANY ONE of the following(49)(58)(59): [ ]a) Emergency craniotomy for tumor, hematoma, or trauma [ ]b) Elective craniotomy for posterior fossa tumor [ ]c) Elective craniotomy (supratentorial) for tumor with ANY ONE of the following: [ ]i) Postoperative neurologic deficit or impaired consciousness 6 hours after completion of procedure [ ]ii) SBP less than 110 mm Hg or greater than 180 mm Hg despite therapy [ ]iii) Extensive operative blood loss [ ]iv) High anesthesia risk (eg, [place] [employer] score greater than 3 [ ]d) Craniotomy for aneurysm with ANY ONE of the following: [ ]i) Postoperative neurologic deficit or impaired consciousness 6 hours after completion of procedure [ ]ii) Preoperative Ahumada-Velez grade 3 or higher [ ]iii) SBP less than 110 mm Hg or greater than 180 mm Hg despite therapy [ ]iv) Intracranial pressure monitoring [ ]e) Acute spinal cord injury [ ]f) Subarachnoid hemorrhage [ ]g) Traumatic brain injury with ANY ONE of the following: [ ]i) Acute mental status change ([place] coma scale score less than 10) [ ]ii) CT scan showing cerebral edema or hemorrhage [ ]iii) Intracranial pressure monitoring [ ]h) Complications of any surgery requiring ICU intervention as indicated by ANY ONE of the following(60): [ ]i) Hemodynamic instability [ ]ii) [place] with complications (eg, severe arrhythmia, hypotension) [ ]iii) Excessive bleeding or severe coagulopathy [ ]iv) Respiratory failure [ ] v) Renal failure [ ]vi) Airway instability or obstruction [ ]vii) Neurologic deterioration [ ]viii) Infection with likelihood of sepsis syndrome or significant fluid shifts [ ]i) Preoperative or postoperative patients requiring ICU intervention, such as hemodynamic optimization, pulmonary artery monitoring, mechanical ventilation, or extensive nursing care [ ]XV.Obstetrics and Gynecology diagnoses or procedures, including ANY ONE of the ffg. (61)(62)(63): [ ]a) Severe peripartum condition as indicated by ANY ONE of the following: [ ]i) Eclampsia [ ]ii) Hypertensive emergency [ ]iii) HELLP syndrome (hemolysis, elevated liver enzymes, and low platelet count) [ ]iv) Pulmonary edema [ ]v) Respiratory failure [ ]vi) Pulmonary embolism [ ]vii) Anaphylactoid syndrome of (amniotic fluid embolus) [ ]viii) Ovarian hyperstimulation syndrome [D] [ ]ix) Acute fatty liver of (hepatic failure) [ ]x) Complications such as placental abruption or severe hemorrhage [ ]xi) Sepsis (eg, puerperal sepsis, chorioamnionitis, septic ) [ ]xii) cardiomyopathy with severe congestive heart failure (eg, respiratory failure, cardiogenic shock) [ ]b) Ruptured ectopic [ ]c) Complications of any surgery requiring ICU intervention as indicated by ANY ONE of the following: [ ]i) Hemodynamic instability [ ]ii) [place] with complications (eg, severe arrhythmia, hypotension) [ ]iii) Excessive bleeding or severe coagulopathy [ ]iv) Respiratory failure [ ]v) Renal failure [ ]vi) Airway instability or obstruction [ ]vii) Neurologic deterioration [ ]viii) Infection with likelihood of sepsis syndrome or significant fluid shifts [ ]d) Preoperative or postoperative patients requiring ICU intervention , such as hemodynamic optimization, pulmonary artery monitoring, mechanical ventilation, or extensive nursing care [ ]XVI.Ophthalmology diagnoses or procedures, including ANY ONE of the following (64): [ ]a) Complications of any surgery requiring ICU intervention, such as ANY ONE of the following: [ ]i) Hemodynamic instability [ ]ii) [place] with complications (eg, severe arrhythmia, hypotension) [ ]iii) Excessive bleeding or severe coagulopathy [ ]iv) Respiratory failure [ ]v) Renal failure [ ]vi) Airway instability or obstruction [ ]vii) Neurologic deterioration [ ]viii) Infection with likelihood of sepsis syndrome or significant fluid shifts [ ]b) Preoperative or postoperative patients requiring ICU intervention , such as hemodynamic optimization, pulmonary artery monitoring, mechanical ventilation, or extensive nursing care [ ]XVII.Orthopedics diagnoses or procedures, including ANY ONE of the following [phone]): [ ]a) Complications of any surgery requiring ICU intervention as indicated by ANY ONE of the following: [ ]i) Hemodynamic instability [ ]ii) [place] with complications (eg, severe arrhythmia, hypotension) [ ]iii) Excessive bleeding or severe coagulopathy [ ]iv) Respiratory failure [ ]v) Renal failure [ ]vi) Airway instability or obstruction [ ] vii) Neurologic deterioration [ ]viii) Infection with likelihood of sepsis syndrome or significant fluid shifts [ ]b) Multiple trauma with complicating features as indicated by ANY ONE of the following(38): [ ]i) Impending acute respiratory failure due to lung contusion, unstable chest wall, pneumothorax, aspiration, or hemorrhage [ ]ii) Facial or neck injury threatening airway patency [ ]iii) Cardiac contusion [ ]iv) Rhabdomyolysis requiring large volume IV fluid resuscitation [ ]v) Pericardial effusion [ ]vi) Bronchial tear [ ]vii) Hemodynamic instability [ ]viii) Other significant complicating feature [ ]c) Threatened compartment syndrome [ ]d) Severe krishnamurthy with ANY ONE of the following(68)(69)(70): [ ]i) Hypotension or requirement for aggressive fluid resuscitation [ ]ii) Respiratory insufficiency with requirement for high- flow oxygen or mechanical ventilation [ ]iii) Carbon monoxide poisoning [ ]iv) Life-threatening cardiac, renal, pulmonary, or neurologic dysfunction [ ]v) High-voltage (eg, 1000 volts or more) electrical burn [ ]vi) Requirement for frequent or intensive debridement and dressing changes; examples include: [ ]1) Partial thickness krishnamurthy greater than 10% of body surface [ ]2) Krishnamurthy on face, hands, feet, genitalia, perineum , or major joints [ ]3) Third-degree krishnamurthy [ ]4) Any burn greater than 15% of body surface area [ ]vii) Inhalation lung injury [ ]viii) Concomitant trauma or other medical condition requiring ICU care [ ]e) Preoperative or postoperative patients requiring ICU intervention , such as hemodynamic optimization, pulmonary artery monitoring, mechanical ventilation, or extensive nursing care [ ]XVIII.Otolaryngology diagnoses or procedures, including ANY ONE of the following (71)(72): [ ]a) Complications of any surgery requiring ICU intervention as indicated by ANY ONE of the following: [ ]i) Hemodynamic instability [ ]ii) [place] with complications (eg, severe arrhythmia, hypotension) [ ]iii) Excessive bleeding or severe coagulopathy [ ]iv) Respiratory failure [ ]v) Renal failure [ ]vi) Airway instability or obstruction [ ]vii) Neurologic deterioration [ ]viii) Infection with likelihood of sepsis syndrome or significant fluid shifts [ ]b) Airway or hemodynamic compromise that persists after 3 hours of observation in postanesthesia care unit following nasal, palate (eg, uvulopalatopharyngoplasty or palatoplasty), or tongue surgery for sleep apnea [ ]c) Preoperative or postoperative patient requiring ICU intervention, such as hemodynamic optimization, pulmonary artery monitoring, mechanical ventilation, or extensive nursing care [ ]d) Symptomatic upper airway compromise (eg, laryngeal edema, mass) [ ]e) Other airway-compromising procedure (eg, posterior nasal packing) [ ]XIX.Thoracic Surgery and Pulmonary Disease Diagnosis or procedures, including ANY ONE of the following(6): [ ]a) Asthma with ANY ONE of the following(73)(74): [ ]i) Impending or actual respiratory arrest [ ]ii) Need for mechanical ventilation [ ]iii) Peak expiratory flow rate less than 30% of predicted or personal best [ ]iv) Peak expiratory flow rate or FEV1 less than 40% predicted after 1 hour of initial treatment [ ]v) Acidosis [ ]vi) Persistent or worsening hypoxia after initial treatment [ ]vii) Hypercapnia (eg, partial pressure of carbon dioxide greater than 43 mm Hg (5.7 kPa)) [ ]viii) Severe drowsiness, confusion, or coma [ ]ix) Requiring continuous inhaled bronchodilator [ ]b) COPD with ANY ONE of the following(75): [ ]i) Need for assisted ventilation [ ]ii) Hemodynamic instability [ ]iii) Severe dyspnea unresponsive to initial treatment [ ]iv) Change in level of consciousness [ ]v) Persistent findings despite oxygen and outpatient management, including ANY ONE of the following: [ ]1) Partial pressure of oxygen less than 40 mm Hg ( 5.3 kPa) [ ]2) Partial pressure of carbon dioxide greater than 60 mm Hg (8.0 kPa) [ ]3) pH less than 7.25 [ ]4) Worsening hypoxemia or acidosis [ ]c) Cor pulmonale with ANY ONE of the following(75)(76)(77): [ ]i) Hemodynamic instability [ ]ii) Need for IV inotropic or vasoactive agent [ ]iii) Need for invasive hemodynamic monitoring (eg, central venous, pulmonary artery, or arterial catheter) [ ]iv) Hypoxemia with partial pressure of oxygen less than 40 mm Hg (5.3 kPa) [ ]v) Worsening hypoxemia or acidosis despite oxygen therapy [ ]vi) Need for assisted ventilation [ ]vii) Need for right ventricular assist device [ ]viii) Unstable atrial tachyarrhythmia [ ]ix) Need for inhaled nitric oxide [ ]d) Aspiration pneumonia with ANY ONE of the following(78): [ ]i) Acute respiratory distress syndrome (PaO2/FiO2 ratio of 300 or less) [ ]ii) Impending or actual respiratory arrest [ ]iii) Need for invasive or noninvasive mechanical ventilation [ ]e) Pneumocystis jiroveci pneumonia with ANY ONE of the following(79): [ ]i) Impending or actual respiratory arrest [ ]ii) Hypoxia (eg, PO260 mmGh (8.0 kPa) or less despite oxygen therapy) [ ]iii) Need for invasive or noninvasive mechanical ventilation [ ]f) Pneumonia with ANY ONE of the following(80)(81)(82): [ ]i) Need for invasive or noninvasive assisted ventilation [ ]ii) Hemodynamic instability [ ]iii) Severity factors as indicated by 3 or MORE of the following: [ ]1) Respiratory rate 30 breaths per minute or greater [ ]2) PaO2/FiO2 ratio of 250 or less [ ]3) Multilobed infiltrates [ ]4) Altered mental status [ ]5) BUN 20 mg/dL (7.1 mmol/L) or greater [ ]6) WBC count less than 4000/mm3 (4 x109/L) [ ]7) Platelet count <100,000/mm3 (100 x109/L) [ ]8) Temperature less than 36 degrees C (96.8 degrees F ) [ ]9) Hypotension requiring aggressive fluid resuscitation [ ]g) Pulmonary hypertension requiring initiation of parenteral pulmonary vasodilator or trial of inhaled nitric oxide (eg, need for right heart catheterization)(76) [ ]h) Impending respiratory failure as indicated by ANY ONE of the following: [ ]i) Respiratory rate greater than 30 or partial pressure of oxygen less than 60 mm Hg (8.0 kPa) on 50% oxygen or more [ ]ii) Partial pressure of carbon dioxide greater than 45 mm Hg (6.0 kPa) with pH less than 7.35 [ ]i) Respiratory failure with ANY ONE of the following (47): [ ]i) Need for invasive or noninvasive mechanical ventilation [ ]ii) High likelihood of requiring mechanical ventilation within 24 hours [ ]iii) Observation in the first several hours immediately after extubation from mechanical ventilation [ ]iv) Need for close observation and aggressive therapy, such as suctioning, chest physiotherapy, or inhalation treatments at intervals less than 1 hour [ ]v) Pharmacologic ventilatory paralysis [ ]j) Venous thromboembolism with need for systemic or catheter- directed thrombolysis (eg, for limb-threatening thrombosis, phlegmasia cerulea dolens) (83) [ ]k) Pulmonary embolus with ANY ONE of the following(83): [ ]i) Hypotension [ ]ii) Severe hypoxia [ ]iii) Dangerous arrhythmia [ ]iv) Bleeding [ ]v) Need for systemic or catheter-directed thrombolysis [ ]l) Lobectomy or other major thoracic surgery [ ]m) Lung transplant [ ]n) Symptomatic upper airway obstruction (eg, laryngeal edema, mass) [ ]o) Massive hemoptysis [ ]p) Infection or thrombosis of an intravenous device with ANY ONE of the following(6)(84): [ ]i) Hemodynamic instability [ ]ii) Requirement for frequent hemodynamic measurements [ ]iii) Shock [ ]iv) End organ dysfunction [ ] v) Acute renal failure due to missed dialysis [ ]vi) Unstable acute complication (eg, pericardial tamponade , tension pneumothorax) [ ]q) Traumatic rib fracture or fractures with ANY ONE of the following(85): [ ]i) Injury severity score of 19 or greater [ ]ii) Respiratory insufficiency [ ]iii) Flail chest [ ]iv) Sternum fracture [ ]v) Vascular injury (eg, heart or great vessels) [ ]r) Pleural effusion with ANY ONE of the following(86): [ ]i) Respiratory insufficiency [ ]ii) Hemothorax with active ongoing bleeding [ ]iii) Hemodynamic instability [ ]iv) Unstable comorbid condition (eg, sepsis or heart failure [ ]XX. Urology diagnoses or procedures, including ANY ONE of the following ( 87)(88): [ ]a) Renal transplant [ ]b) Complications of any surgery requiring ICU intervention as indicated by ANY ONE of the following: [ ]i) Hemodynamic instability [ ]ii) [place] with complications (eg, severe arrhythmia, hypotension) [ ]iii) Excessive bleeding or severe coagulopathy [ ]iv) Respiratory failure [ ]v) Renal failure [ ]vi) Airway instability or obstruction [ ]vii) Neurologic deterioration [ ]viii) Infection with likelihood of sepsis syndrome or significant fluid shifts [ ]c) Preoperative or postoperative patients requiring ICU intervention , such as hemodynamic optimization, pulmonary artery monitoring, mechanical ventilation , or extensive nursing care [ ]XXI.Infectious Disease diagnoses or procedures, with ANY ONE of the following (6)(43): [ ]a) Hemodynamic instability [ ]b) Shock [ ]c) Requirement for frequent hemodynamic measurements (eg, arterial catheter, pulmonary artery catheter) [ ]d) Sepsis or suspected sepsis with end organ dysfunction (eg, acute kidney injury, acute respiratory distress syndrome) [ ]e) Necrotizing soft tissue infection [ ] XXII.Hematology - Oncology diagnoses or procedures, including chemotherapy administration with ANY ONE of the following(42): [ ]a) Hemodynamic instability [ ]b) Tumor lysis syndrome with ANY ONE of the following : [ ]1) Acute kidney injury [ ]2) Severe electrolyte abnormality [ ]3) Cardiac dysrhythmia [ ]XXIII. Systemic conditions, including ANY ONE of the following: [ ]a) Severe electrolyte or metabolic disturbance causing or likely to cause ANY ONE of the following(10)(89)(90): [ ]i) Life-threatening cardiac dysrhythmia [ ]ii) Respiratory insufficiency [ ]iii) Altered mental status [ ]iv) Seizures [ ]v) Hemodynamic instability [ ]vi) Muscular weakness [ ]b) Environmental injuries such as hypothermia, hyperthermia, electrical injuries, or near drowning(70)(91)(92) The original [facility] content created by [employer] has been revised. The portions of the content which have been revised are identified through the use of italic text or in bold, and [facility] has neither reviewed nor approved the modified material. All other unmodified content is copyright [employer]. Please see references footnoted in the original [facility] edition 2016 Admission Criteria Met: Yes
[2017-04-19 10:15] LABS: BUN/Creatinine Ratio 20.95; Chloride 87.5 mmol/L (98-107)
[2017-04-19 10:16] LABS: Magnesium 3.6 mg/dL (1.7-2.3); Phosphorous 5.5 mg/dL (2.5-4.5)
[2017-04-19 10:18] LABS: Potassium 6.1 mmol/L (3.6-5.0)
[2017-04-19] MEDS ORDERED: NACL 0.9% 1000 ML 1,000 ML IV SCH (11:00)
--- NOTE | 2017-04-19 11:01 | History and Physical Report ---
History of Present Illness Date of examination: 04/19/17 Chief complaint: Intractable nausea vomiting History of present illness: 46-year-old male with no significant past medical history who presents with intractable nausea vomiting. He states that his symptoms began about 3 months ago when he was losing weight, had made some changes in his diet pretty more food and drinking more water. He also notes that he had polyuria and polydipsia , it was not improving even with his dietary changes. He thinks he's lost about 25 pounds. He has no significant past medical history and does not follow with a doctor. Upon triage in the ED he was found to have a glucose of 800. Therefore he was started on insulin and IV fluids. Since receiving some IV fluids he reports feeling better. He states the vomiting what appeared to be what he eats, denies any bloody vomit or bilious vomiting. Nausea and vomiting is currently improved. Medications and Allergies Allergies Allergy/AdvReac Type Severity Reaction Status Date / Time No Known Allergies Allergy Unverified 12/01/16 09:59 Home Medications Medication Instructions Recorded Confirmed Last Taken Type No Known Home Medications [No 04/19/17 04/19/17 Unknown History Reported Home Medications] Active Meds: Active Medications Dextrose (D50w (25gm)) 0 ml IV ONCE PRN PRN Reason: Hypoglycemia Insulin Human Regular 100 (units/ Sodium Chloride) 100 mls @ 10 mls/hr IV TITR VIVIANA; 10 UNITS/HR PRN Reason: Protocol Last Admin: 04/19/17 10:35 Dose: 8 units/hr, 8 mls/hr Sodium Chloride (Nacl 0.9% 1000 Ml) 1,000 mls @ 150 mls/hr IV DIRECT VIVIANA Last Admin: 04/19/17 10:37 Dose: 150 mls/hr Exam - Constitutional Vitals: Temp Pulse Resp BP Pulse Ox 98.4 F 97 H 17 140/98 99 04/19/17 09:20 04/19/17 09:20 04/19/17 09:20 04/19/17 09:20 04/19/17 09:20 General appearance: Present: no acute distress, well-nourished - EENT Eyes: Present: PERRL ENT: hearing intact, clear oral mucosa, other (dry mucous membranes) - Neck Neck: Present: supple, normal ROM - Respiratory Respiratory effort: normal Respiratory: bilateral: CTA - Cardiovascular Heart Sounds: Present: S1 & S2. Absent: rub, click - Extremities Extremities: pulses symmetrical, No edema Peripheral Pulses: within normal limits - Abdominal General gastrointestinal: Present: soft, non-tender, non-distended, normal bowel sounds Male genitourinary: Present: normal - Integumentary Integumentary: Present: clear, warm, dry - Musculoskeletal Musculoskeletal: gait normal, strength equal bilaterally - Psychiatric Psychiatric: appropriate mood/affect, intact judgment & insight - Neurologic Neurologic: CNII-XII intact, moves all extremities Results - Labs CBC & Chem 7: 04/19/17 07:49 04/19/17 09:54 Labs: Laboratory Last Values WBC 10.8 K/mm3 (4.5-11.0) 04/19/17 07:49 RBC 4.94 M/mm3 (3.65-5.03) 04/19/17 07:49 Hgb 14.8 gm/dl (11.8-15.2) 04/19/17 07:49 Hct 45.7 % (35.5-45.6) H 04/19/17 07:49 MCV 93 fl (84-94) 04/19/17 07:49 MCH 30 pg (28-32) 04/19/17 07:49 MCHC 32 % (32-34) 04/19/17 07:49 RDW 13.0 % (13.2-15.2) L 04/19/17 07:49 Plt Count 202 K/mm3 (140-440) 04/19/17 07:49 Lymph % (Auto) 10.4 % (13.4-35.0) L 04/19/17 07:49 [place] % (Auto) 7.9 % (0.0-7.3) H 04/19/17 07:49 Eos % (Auto) 0.2 % (0.0-4.3) 04/19/17 07:49 Baso % (Auto) 0.7 % (0.0-1.8) 04/19/17 07:49 Lymph # 1.1 K/mm3 (1.2-5.4) L 04/19/17 07:49 [place] # 0.9 K/mm3 (0.0-0.8) H 04/19/17 07:49 Eos # 0.0 K/mm3 (0.0-0.4) 04/19/17 07:49 Baso # 0.1 K/mm3 (0.0-0.1) 04/19/17 07:49 Seg Neutrophils % 80.8 % (40.0-70.0) H 04/19/17 07:49 Seg Neutrophils # 8.7 K/mm3 (1.8-7.7) H 04/19/17 07:49 VBG pH 7.294 (7.320-7.420) L 04/19/17 09:29 Sodium 141 mmol/L (137-145) 04/19/17 09:54 Potassium 6.1 mmol/L (3.6-5.0) H* 04/19/17 09:54 Chloride 87.5 mmol/L (98-107) L 04/19/17 09:54 Carbon Dioxide 20 mmol/L (22-30) L 04/19/17 09:54 Anion Gap 40 mmol/L 04/19/17 09:54 BUN 44 mg/dL (9-20) H 04/19/17 09:54 Creatinine 2.1 mg/dL (0.8-1.5) H 04/19/17 09:54 Estimated GFR 41 ml/min 04/19/17 09:54 BUN/Creatinine Ratio 20.95 % 04/19/17 09:54 Glucose 767 mg/dL (75-100) H* 04/19/17 09:54 Calcium 10.0 mg/dL (8.4-10.2) 04/19/17 09:54 Phosphorus 5.50 mg/dL (2.5-4.5) H 04/19/17 09:54 Magnesium 3.60 mg/dL (1.7-2.3) H 04/19/17 09:54 Urine Color Straw (Yellow) 04/19/17 08:09 Urine Turbidity Clear (Clear) 04/19/17 08:09 Urine pH 5.0 (5.0-7.0) 04/19/17 08:09 Ur Specific [place] 1.025 (1.003-1.030) 04/19/17 08:09 Urine Protein 30 mg/dl mg/dL (Negative) 04/19/17 08:09 Urine Glucose (UA) >=500 mg/dL (Negative) 04/19/17 08:09 Urine Ketones 80 mg/dL (Negative) 04/19/17 08:09 Urine Blood Sm (Negative) 04/19/17 08:09 Urine Nitrite Neg (Negative) 04/19/17 08:09 Urine Bilirubin Neg (Negative) 04/19/17 08:09 Urine Urobilinogen < 2.0 mg/dL (<2.0) 04/19/17 08:09 Ur Leukocyte Esterase Neg (Negative) 04/19/17 08:09 Urine WBC (Auto) 1.0 /HPF (0.0-6.0) 04/19/17 08:09 Urine RBC (Auto) 2.0 /HPF (0.0-6.0) 04/19/17 08:09 Assessment and Plan Assessment and plan: This 46-year-old male with no significant past medical history who presented with weight loss, polydipsia polyuria and nausea vomiting. Found to have very elevated glucose of 800 Hyper glycemic hyperosmolar nonketotic state Admit to ICU, insulin drip, IV fluid resuscitation. Patient will likely need anywhere from 4-6 L of IV fluids for proper resuscitation Dehydration Due to hyperglycemia, IV fluid resuscitation Acute kidney injury/vasomotor nephropathy Most likely due to hyperglycemia and polyuria. Will treat with relative IV fluids, it does not improve by tomorrow we'll obtain kidney imaging and will consult nephrology DVT prophylaxis Lovenox The high probability of a clinically significant, sudden or life threatening deterioration of the [endocrine, renal and cardiovascular] system(s) required my full and direct attention, intervention and personal management. The aggregate critical care time was [60] minutes. This time is in addition to time spent performing reported procedures but includes the following: [] Data Review and interpretation [] Patient assessment and monitoring of vital signs [] Documentation [] Medication orders and management Advance Directives: Yes VTE prophylaxis?: Chemical Plan of care discussed with patient/family: Yes
[2017-04-19 15:34] LABS: BUN/Creatinine Ratio 21.76; Calcium 10.2 mg/dL (8.4-10.2); Chloride 101.4 mmol/L (98-107); Potassium 4.3 mmol/L (3.6-5.0)
--- NOTE | 2017-04-19 15:45 | Consultation ---
History of Present Illness Consult date: 04/19/17 Requesting physician: DEEPALI BERKOWITZ Reason for consult: other (DKA) History of present illness: PULMONARY/CCM CONSULT NOTE (Full dictation # [id number]) Please see dictated notes for full details Medications and Allergies Allergies Allergy/AdvReac Type Severity Reaction Status Date / Time No Known Allergies Allergy Unverified 12/01/16 09:59 Home Medications Medication Instructions Recorded Confirmed Last Taken Type No Known Home Medications [No 04/19/17 04/19/17 Unknown History Reported Home Medications] Active Meds: Active Medications Enoxaparin Sodium (Lovenox) 40 mg SUB-Q QDAY@2200 VIVIANA Sodium Chloride (Nacl 0.9% 1000 Ml) 1,000 mls @ 150 mls/hr IV DIRECT VIVIANA Last Admin: 04/19/17 10:37 Dose: 150 mls/hr Pneumococcal Polyvalent Vaccine (Pneumovax 23) 0.5 ml IM .ONCE ONE Stop: 04/20/17 12:01 Physical Examination Vital signs: Vital Signs Temp Pulse Resp BP Pulse Ox 97.4 F L 109 H 18 132/98 99 04/19/17 07:37 04/19/17 07:37 04/19/17 07:37 04/19/17 07:37 04/19/17 07:37 Results - Laboratory Findings CBC and BMP: 04/19/17 07:49 04/20/17 09:01 Abnormal lab findings: Abnormal Labs 04/19/17 04/19/17 04/19/17 11:36 12:31 14:38 BUN 37 H Creatinine 1.7 H Glucose 397 H POC Glucose > 500 H > 500 H
[2017-04-19 18:08] LABS: BUN/Creatinine Ratio 21.87; Calcium 10.2 mg/dL (8.4-10.2); Chloride 106.6 mmol/L (98-107); Potassium 4.2 mmol/L (3.6-5.0)
[2017-04-19 18:09] LABS: Magnesium 3.5 mg/dL (1.7-2.3)
[2017-04-19] MEDS ORDERED: D5/0.45NS 1,000 ML IV ONE (18:26)
[2017-04-19] MEDS ORDERED: D5W/0.45% NACL/KCL 20 MEQ 20 MEQ/1,000 ML BAG IV ONE (18:30)
[2017-04-19] MEDS: D5W/0.45% NACL/KCL 20 MEQ 20 MEQ/1,000 ML BAG IV SCH (18:46)
[2017-04-19] MEDS ORDERED: AMBIEN PO PRN (18:53)
[2017-04-19] MEDS: NovoLIN R 100 UNITS in NACL 0.9% 99 ML IV SCH (20:03)
[2017-04-19] MEDS: LOVENOX SUB-Q SCH (22:07)
[2017-04-19 22:27] LABS: Anion Gap 23 mmol/L; BUN/Creatinine Ratio 22.66; Blood Urea Nitrogen 34 mg/dL (9-20); Calcium 9.4 mg/dL (8.4-10.2); Carbon Dioxide 27 mmol/L (22-30); Chloride 109.3 mmol/L (98-107); Glucose 243 mg/dL (75-100); Potassium 4.2 mmol/L (3.6-5.0); Sodium 155 mmol/L (137-145)
[2017-04-20 00:52] LABS: Anion Gap 27 mmol/L; BUN/Creatinine Ratio 23.57; Blood Urea Nitrogen 33 mg/dL (9-20); Calcium 10.1 mg/dL (8.4-10.2); Carbon Dioxide 24 mmol/L (22-30); Chloride 109.7 mmol/L (98-107); Glucose 248 mg/dL (75-100); Potassium 4.1 mmol/L (3.6-5.0); Sodium 157 mmol/L (137-145)
[2017-04-20 04:14] LABS: Anion Gap 21 mmol/L; Blood Urea Nitrogen 33 mg/dL (9-20); Calcium 9.4 mg/dL (8.4-10.2); Carbon Dioxide 27 mmol/L (22-30); Chloride 110.6 mmol/L (98-107); Glucose 212 mg/dL (75-100); Potassium 3.9 mmol/L (3.6-5.0); Sodium 155 mmol/L (137-145)
[2017-04-20 05:25] LABS: Anion Gap 17 mmol/L; Blood Urea Nitrogen 30 mg/dL (9-20); Calcium 9.5 mg/dL (8.4-10.2); Carbon Dioxide 32 mmol/L (22-30); Glucose 154 mg/dL (75-100); Potassium 4.1 mmol/L (3.6-5.0); Sodium 157 mmol/L (137-145)
[2017-04-20] MEDS: D5W/0.45% NACL/KCL 20 MEQ 20 MEQ/1,000 ML BAG IV SCH ×2 (06:34→12:19)
[2017-04-20 09:38] LABS: Anion Gap 17 mmol/L; BUN/Creatinine Ratio 20.76; Blood Urea Nitrogen 27 mg/dL (9-20); Calcium 9.2 mg/dL (8.4-10.2); Carbon Dioxide 32 mmol/L (22-30); Chloride 106.6 mmol/L (98-107); Glucose 313 mg/dL (75-100); Potassium 4.3 mmol/L (3.6-5.0); Sodium 151 mmol/L (137-145)
[2017-04-20] MEDS: NovoLIN R 100 UNITS in NACL 0.9% 99 ML IV SCH (11:05)
[2017-04-20] MEDS ORDERED: PNEUMOVAX 23 IM ONE (12:00)
--- NOTE | 2017-04-20 12:50 | Progress Note ---
Assessment and Plan - Patient Problems (1) Acute renal failure Current Visit: Yes Status: Acute Qualifiers: Acute renal failure type: A Plan to address problem: - continue IV resuscitation - follow I's & O's - replace electrolytes per protocol - improving (2) Diabetes mellitus, new onset Current Visit: Yes Status: Acute Plan to address problem: - improved - transition to long acting insulin - diabetic education ongoing - follow clinically Subjective Date of service: 04/20/17 Principal diagnosis: Uncontrolled Hyperglycemia; New onset Diabetes Interval history: Seen and examined at bedside; 24 hour events reviewed; nursing and respiratory care staff consulted; no adverse overnight events reported to me; about to be transitioned from IV insulin therapy; denies acute chest pains or increased SOB ; diabetic education ongoing; no new issues otherwise Objective Vital Signs - 12hr 04/20/17 04/20/17 04/20/17 01:00 02:00 03:00 Temperature Pulse Rate 97 H 92 H 95 H Pulse Rate [ From Monitor] Respiratory 12 11 L 13 Rate Blood Pressure 124/90 135/90 133/92 O2 Sat by Pulse 97 Oximetry 04/20/17 04/20/17 04/20/17 04:00 05:00 06:00 Temperature 98.8 F Pulse Rate 91 H 91 H 89 Pulse Rate [ From Monitor] Respiratory 11 L 14 13 Rate Blood Pressure 145/94 154/101 153/97 O2 Sat by Pulse 99 97 98 Oximetry 04/20/17 04/20/17 04/20/17 07:00 08:00 08:10 Temperature 98.3 F Pulse Rate 84 92 H Pulse Rate [ 93 H From Monitor] Respiratory 12 13 15 Rate Blood Pressure 132/75 160/97 O2 Sat by Pulse 98 100 99 Oximetry Constitutional: no acute distress, alert Eyes: non-icteric ENT: oropharynx moist Neck: supple, no lymphadenopathy Effort: normal Ascultation: Bilateral: clear Cardiovascular: regular rate and rhythm Gastrointestinal: normoactive bowel sounds, soft, non-tender, non-distended Integumentary: normal Extremities: no cyanosis, no edema, pulses normal, no ischemia or petechiae Neurologic: normal mental status, non-focal exam, pupils equal and round, motor strength normal and Psychiatric: mood appropriate, affect normal CBC and BMP: 04/19/17 07:49 04/20/17 09:01 Abnormal lab findings: Abnormal Labs 04/19/17 04/19/17 04/19/17 11:36 12:31 14:04 Sodium Chloride Carbon Dioxide BUN Creatinine Glucose POC Glucose > 500 H > 500 H 364 H Hemoglobin A1c Phosphorus Magnesium 04/19/17 04/19/17 04/19/17 14:38 15:01 15:44 Sodium 151 H D Chloride Carbon Dioxide BUN 37 H Creatinine 1.7 H Glucose 397 H POC Glucose 331 H 328 H Hemoglobin A1c Phosphorus Magnesium 04/19/17 04/19/17 04/19/17 17:27 17:27 18:08 Sodium 154 H Chloride Carbon Dioxide 31 H BUN 35 H Creatinine 1.6 H Glucose 248 H POC Glucose 239 H Hemoglobin A1c Phosphorus 2.00 L D Magnesium 3.50 H 04/19/17 04/19/17 04/19/17 20:05 21:01 21:37 Sodium 155 H Chloride 109.3 H Carbon Dioxide BUN 34 H Creatinine Glucose 243 H POC Glucose 220 H 220 H Hemoglobin A1c Phosphorus Magnesium 04/19/17 04/19/17 04/19/17 21:56 23:02 23:02 Sodium 157 H Chloride 109.7 H Carbon Dioxide BUN 33 H Creatinine Glucose 248 H POC Glucose 234 H Hemoglobin A1c 19.9 H Phosphorus Magnesium 04/19/17 04/19/17 04/20/17 23:03 23:59 00:53 Sodium 155 H Chloride 110.6 H Carbon Dioxide BUN 33 H Creatinine Glucose 212 H POC Glucose 222 H 173 H Hemoglobin A1c Phosphorus Magnesium 04/20/17 04/20/17 04/20/17 00:58 01:59 03:01 Sodium Chloride Carbon Dioxide BUN Creatinine Glucose POC Glucose 212 H 195 H 176 H Hemoglobin A1c Phosphorus Magnesium 04/20/17 04/20/17 04/20/17 04:10 04:45 05:05 Sodium 157 H Chloride 112.0 H Carbon Dioxide 32 H BUN 30 H Creatinine Glucose 154 H POC Glucose 179 H 152 H Hemoglobin A1c Phosphorus Magnesium 04/20/17 04/20/17 04/20/17 06:14 08:05 09:01 Sodium 151 H Chloride Carbon Dioxide 32 H BUN 27 H Creatinine Glucose 313 H POC Glucose 173 H 207 H Hemoglobin A1c Phosphorus Magnesium 04/20/17 04/20/17 04/20/17 09:17 10:01 11:11 Sodium Chloride Carbon Dioxide BUN Creatinine Glucose POC Glucose 255 H 313 H 272 H Hemoglobin A1c Phosphorus Magnesium
[2017-04-20] MEDS: PEPCID PO SCH (14:17)
[2017-04-20] MEDS: ZESTRIL PO SCH (14:17)
[2017-04-20] MEDS: NACL 0.45% 1000 ML 1,000 ML IV SCH ×2 (14:21→22:46)
--- NOTE | 2017-04-20 14:45 | Progress Note ---
Hospitalist Physical - Constitutional Vitals: Temp Pulse Resp BP Pulse Ox 99 F 92 H 12 124/87 98 04/20/17 12:00 04/20/17 14:17 04/20/17 12:01 04/20/17 14:17 04/20/17 12:01 General appearance: Present: no acute distress, well-nourished Results - Labs CBC & Chem 7: 04/19/17 07:49 04/20/17 09:01 Labs: Laboratory Last Values WBC 10.8 K/mm3 (4.5-11.0) 04/19/17 07:49 RBC 4.94 M/mm3 (3.65-5.03) 04/19/17 07:49 Hgb 14.8 gm/dl (11.8-15.2) 04/19/17 07:49 Hct 45.7 % (35.5-45.6) H 04/19/17 07:49 MCV 93 fl (84-94) 04/19/17 07:49 MCH 30 pg (28-32) 04/19/17 07:49 MCHC 32 % (32-34) 04/19/17 07:49 RDW 13.0 % (13.2-15.2) L 04/19/17 07:49 Plt Count 202 K/mm3 (140-440) 04/19/17 07:49 Lymph % (Auto) 10.4 % (13.4-35.0) L 04/19/17 07:49 [place] % (Auto) 7.9 % (0.0-7.3) H 04/19/17 07:49 Eos % (Auto) 0.2 % (0.0-4.3) 04/19/17 07:49 Baso % (Auto) 0.7 % (0.0-1.8) 04/19/17 07:49 Lymph # 1.1 K/mm3 (1.2-5.4) L 04/19/17 07:49 [place] # 0.9 K/mm3 (0.0-0.8) H 04/19/17 07:49 Eos # 0.0 K/mm3 (0.0-0.4) 04/19/17 07:49 Baso # 0.1 K/mm3 (0.0-0.1) 04/19/17 07:49 Seg Neutrophils % 80.8 % (40.0-70.0) H 04/19/17 07:49 Seg Neutrophils # 8.7 K/mm3 (1.8-7.7) H 04/19/17 07:49 VBG pH 7.294 (7.320-7.420) L 04/19/17 09:29 Sodium 151 mmol/L (137-145) H 04/20/17 09:01 Potassium 4.3 mmol/L (3.6-5.0) 04/20/17 09:01 Chloride 106.6 mmol/L (98-107) 04/20/17 09:01 Carbon Dioxide 32 mmol/L (22-30) H 04/20/17 09:01 Anion Gap 17 mmol/L 04/20/17 09:01 BUN 27 mg/dL (9-20) H 04/20/17 09:01 Creatinine 1.3 mg/dL (0.8-1.5) 04/20/17 09:01 Estimated GFR > 60 ml/min 04/20/17 09:01 BUN/Creatinine Ratio 20.76 % 04/20/17 09:01 Glucose 313 mg/dL (75-100) H 04/20/17 09:01 POC Glucose 272 (70-105) H 04/20/17 11:11 Hemoglobin A1c 19.9 % (4-6) H 04/19/17 23:02 Calcium 9.2 mg/dL (8.4-10.2) 04/20/17 09:01 Phosphorus 2.00 mg/dL (2.5-4.5) L D 04/19/17 17:27 Magnesium 3.50 mg/dL (1.7-2.3) H 04/19/17 17:27 Urine Color Straw (Yellow) 04/19/17 08:09 Urine Turbidity Clear (Clear) 04/19/17 08:09 Urine pH 5.0 (5.0-7.0) 04/19/17 08:09 Ur Specific [place] 1.025 (1.003-1.030) 04/19/17 08:09 Urine Protein 30 mg/dl mg/dL (Negative) 04/19/17 08:09 Urine Glucose (UA) >=500 mg/dL (Negative) 04/19/17 08:09 Urine Ketones 80 mg/dL (Negative) 04/19/17 08:09 Urine Blood Sm (Negative) 04/19/17 08:09 Urine Nitrite Neg (Negative) 04/19/17 08:09 Urine Bilirubin Neg (Negative) 04/19/17 08:09 Urine Urobilinogen < 2.0 mg/dL (<2.0) 04/19/17 08:09 Ur Leukocyte Esterase Neg (Negative) 04/19/17 08:09 Urine WBC (Auto) 1.0 /HPF (0.0-6.0) 04/19/17 08:09 Urine RBC (Auto) 2.0 /HPF (0.0-6.0) 04/19/17 08:09
[2017-04-20] MEDS: GLUCOPHAGE PO SCH (17:00)
[2017-04-20] MEDS: NOVOLOG SUB-Q SCH ×2 (17:06→22:46)
[2017-04-20] MEDS: LOVENOX SUB-Q SCH (22:46)
--- NOTE | 2017-04-21 00:34 | Consultation ---
PULMONARY CRITICAL CARE CONSULTATION CONSULTING PHYSICIAN: Dr. Peters and Champ Garay M.D. REASON FOR CONSULTATION: Diabetic ketoacidosis needing IV insulin therapy. CHIEF COMPLAINT AND HISTORY OF PRESENT ILLNESS: The patient is a 46-year-old -[place] male with past medical history of which he denies none, came into the Emergency Room complaining of intractable nausea and vomiting. According to his relative or caregiver who was in the room, he had been actually having a lot of trouble with weakness, had been coming home and going right to bed in the preceding few weeks or so and she ultimately got him to come to the Emergency Room. He did admit to polydipsia, polyuria. He still lost about 25 pounds. In the ER, he was found to be in diabetic ketoacidosis and request was made for admission to the ICU for IV insulin therapy. When I stopped by to see him, he was resting in the bed. He was on IV insulin at 4 units per hour. He denied any chest pains in association with his symptoms. He denies any prior fevers or chills, cough or expectoration. With regards to tobacco use/abuse history, he had denied tobacco use or abuse. That really is as much of the history of presentation as I have. PAST MEDICAL HISTORY: Denies. PAST SURGICAL HISTORY: Denies. MEDICATIONS: He was on at the time I stopped by to see him, according to the medication administration record included the following: Lovenox 40 mg subcutaneous daily, insulin drip was going at 4 units per hour. He was on D5 half NS at 125 mL per hour; had received some sodium chloride earlier. ALLERGIES: No known drug allergies. DIET: Well-built gentleman. He has lost about 25 pounds according to him in the preceding 2 to 3 months. FAMILY AND SOCIAL HISTORY: Lives in the community. Denies alcohol, tobacco, or illicit drug use or abuse. Family history, otherwise noncontributory. REVIEW OF SYSTEMS: No loss of consciousness. No new onset of seizures. No new onset of focal weakness. He did have generalized malaise and weakness. No gross hematochezia or melena. No gross hematuria or dysuria. No hematemesis. He had polydipsia and polyuria. Complete 13-system review of systems obtained. Pertinent positives and/or negatives as in body of history above, otherwise they are noncontributory. PHYSICAL EXAMINATION: VITAL SIGNS: At presentation, he was afebrile, temperature 97.4, pulse was 109, respiratory rate was 18, and blood pressure 132/90. Oxygen sats were 99%. Inspired oxygen concentration was not recorded. HEAD, EYES, EARS, NOSE AND THROAT: Pupils are equal, round, about 4 mm, reactive to light. Extraocular muscle movements were intact. Grossly, there were no palpable lymph nodes in the supraclavicular or submandibular lymph node chains. No gross jugular venous distention. Oropharynx is Mallampati #2 oropharynx. No significant posterior oropharyngeal erythema or exudation. LUNGS: Auscultation of both lung puga are unremarkable. Lungs are clear bilaterally. HEART: Heart sounds 1 and 2 are heard. There were regular rate and rhythm at the time of my evaluation. ABDOMEN: Soft, full, bowel sounds are positive, nontender. EXTREMITIES: Without overt digital clubbing, cyanosis, or pedal edema. NEUROLOGIC: The exam was grossly nonfocal. LABORATORY DATA: From my review was as follows: White cell count 10,800, hemoglobin 14.8, hematocrit 45.7, platelet count 202. Venous blood gas showed a pH of 7.29. Serum sodium was 141, potassium 5.2, chloride 87, bicarbonate 20, BUN 43, creatinine 2.1, glucose 834. Urinalysis is negative for nitrites and leukocyte esterase. He was spilling glucose. Hemoglobin A1c has been ordered. IMAGING DATA: No radiographic studies for my review. ASSESSMENT AND PLAN: We have a middle-aged gentleman in with new onset diabetes and appropriately on IV insulin therapy. He is in diabetic ketoacidosis, hopefully things may turn around pretty fast if we were able to get him off the drip, close his anion gap and then start him on some long-acting form of insulin. All oral hypoglycemics depending on the attending physician; otherwise, I will add him on GI prophylaxis. He is on DVT prophylaxis. Flu and pneumonia vaccination will be per protocol. I have strongly counseled him to make all the lifestyle modifications that will be necessary for the proper management of this disease process. Thank you very much for the consult Dr. Peters. We will follow along and make further recommendations as picture progresses/becomes clearer. JOB# [id number] CONSTANCE/NTS
[2017-04-21] MEDS ORDERED: GLUCOTROL PO SCH (08:00)
[2017-04-21] MEDS: GLUCOPHAGE PO SCH ×2 (08:18→17:31)
[2017-04-21] MEDS: NOVOLOG SUB-Q SCH ×3 (08:18→17:30)
[2017-04-21] MEDS: PEPCID PO SCH (09:13)
[2017-04-21] MEDS: ZESTRIL PO SCH (09:13)
[2017-04-21] MEDS ORDERED: PNEUMOVAX 23 IM ONE (12:00)
--- NOTE | 2017-04-21 12:31 | Progress Note ---
Assessment and Plan (1) Acute renal failure Current Visit: Yes Status: Acute Qualifiers: Acute renal failure type: A Plan to address problem: - continue IV resuscitation - follow I's & O's - replace electrolytes per protocol - improving (2) Diabetes mellitus, new onset Current Visit: Yes Status: Acute Plan to address problem: - improved - transitioned to long acting insulin (70/30 20 units BID) - metformin started - diabetic education ongoing - follow clinically (3) Hypertension Current Visit: Yes Status: Acute Qualifiers: Hypertension type: H Plan to address problem: - started on lisinopril - follow renal function ..OK to transfer from ICU Subjective Date of service: 04/21/17 Principal diagnosis: Uncontrolled hyperglycemia; New Onset Diabetes Interval history: Seen and examined at bedside; 24 hour events reviewed; nursing and respiratory care staff consulted; no adverse overnight events reported to me; looks and feels much better; denies acute chest pains or increased SOB and tolerating p.o. meals Objective Vital Signs - 12hr 04/21/17 04/21/17 04/21/17 01:00 02:00 03:00 Temperature Pulse Rate 88 76 83 Respiratory 14 14 14 Rate Blood Pressure 104/65 112/58 92/37 O2 Sat by Pulse 98 93 Oximetry 04/21/17 04/21/17 04/21/17 03:33 04:00 05:00 Temperature 98.7 F Pulse Rate 83 84 117 H Respiratory 12 17 Rate Blood Pressure 99/48 99/48 O2 Sat by Pulse 93 95 Oximetry 04/21/17 04/21/17 04/21/17 06:00 07:00 08:00 Temperature 98.7 F Pulse Rate 69 78 76 Respiratory 13 13 9 L Rate Blood Pressure 130/70 118/74 127/81 O2 Sat by Pulse 98 100 Oximetry 04/21/17 09:13 Temperature Pulse Rate 84 Respiratory Rate Blood Pressure 138/72 O2 Sat by Pulse Oximetry Constitutional: no acute distress, alert Eyes: non-icteric ENT: oropharynx moist Neck: supple, no lymphadenopathy Effort: normal Ascultation: Bilateral: clear Cardiovascular: regular rate and rhythm Gastrointestinal: normoactive bowel sounds, soft, non-tender, non-distended Integumentary: normal Extremities: no cyanosis, no edema, pulses normal, no ischemia or petechiae Neurologic: normal mental status, non-focal exam, pupils equal and round, motor strength normal and Psychiatric: mood appropriate, affect normal CBC and BMP: 04/19/17 07:49 04/20/17 09:01 Abnormal lab findings: Abnormal Labs 04/19/17 04/19/17 04/19/17 11:36 12:31 14:04 Sodium Chloride Carbon Dioxide BUN Creatinine Glucose POC Glucose > 500 H > 500 H 364 H Hemoglobin A1c Phosphorus Magnesium 04/19/17 04/19/17 04/19/17 14:38 15:01 15:44 Sodium 151 H D Chloride Carbon Dioxide BUN 37 H Creatinine 1.7 H Glucose 397 H POC Glucose 331 H 328 H Hemoglobin A1c Phosphorus Magnesium 04/19/17 04/19/17 04/19/17 17:27 17:27 18:08 Sodium 154 H Chloride Carbon Dioxide 31 H BUN 35 H Creatinine 1.6 H Glucose 248 H POC Glucose 239 H Hemoglobin A1c Phosphorus 2.00 L D Magnesium 3.50 H 04/19/17 04/19/17 04/19/17 20:05 21:01 21:37 Sodium 155 H Chloride 109.3 H Carbon Dioxide BUN 34 H Creatinine Glucose 243 H POC Glucose 220 H 220 H Hemoglobin A1c Phosphorus Magnesium 04/19/17 04/19/17 04/19/17 21:56 23:02 23:02 Sodium 157 H Chloride 109.7 H Carbon Dioxide BUN 33 H Creatinine Glucose 248 H POC Glucose 234 H Hemoglobin A1c 19.9 H Phosphorus Magnesium 04/19/17 04/19/17 04/20/17 23:03 23:59 00:53 Sodium 155 H Chloride 110.6 H Carbon Dioxide BUN 33 H Creatinine Glucose 212 H POC Glucose 222 H 173 H Hemoglobin A1c Phosphorus Magnesium 04/20/17 04/20/17 04/20/17 00:58 01:59 03:01 Sodium Chloride Carbon Dioxide BUN Creatinine Glucose POC Glucose 212 H 195 H 176 H Hemoglobin A1c Phosphorus Magnesium 04/20/17 04/20/17 04/20/17 04:10 04:45 05:05 Sodium 157 H Chloride 112.0 H Carbon Dioxide 32 H BUN 30 H Creatinine Glucose 154 H POC Glucose 179 H 152 H Hemoglobin A1c Phosphorus Magnesium 04/20/17 04/20/17 04/20/17 06:14 08:05 09:01 Sodium 151 H Chloride Carbon Dioxide 32 H BUN 27 H Creatinine Glucose 313 H POC Glucose 173 H 207 H Hemoglobin A1c Phosphorus Magnesium 04/20/17 04/20/17 04/20/17 09:17 10:01 11:11 Sodium Chloride Carbon Dioxide BUN Creatinine Glucose POC Glucose 255 H 313 H 272 H Hemoglobin A1c Phosphorus Magnesium 04/20/17 04/20/17 04/20/17 11:46 14:11 16:58 Sodium Chloride Carbon Dioxide BUN Creatinine Glucose POC Glucose 240 H 233 H 307 H Hemoglobin A1c Phosphorus Magnesium 04/20/17 04/21/17 04/21/17 21:56 07:59 11:33 Sodium Chloride Carbon Dioxide BUN Creatinine Glucose POC Glucose 328 H 249 H 274 H Hemoglobin A1c Phosphorus Magnesium
[2017-04-21 12:40] VITALS: BP 114/63
--- NOTE | 2017-04-21 16:24 | Discharge Summary ---
Providers - Providers Date of Admission: 04/19/17 10:27 Attending physician: HOPE MARTIN MD 04/19/17 10:41 Consult to Physician [CONS] Urgent Consulting Provider: ARGENTINA OSORIO Reason For Exam: DKA Place consult to:: [employer] Notified:: n 04/21/17 14:45 Consult to Dietitian/Nutrition [CONS] Routine Physician Instructions: Reason For Exam: Diabetic diet education Reason for Consult: Diet education Primary care physician: MANAGED SERVICES CONSULTANT Hospitalization Condition: Fair Disposition: DC-30 STILL A PATIENT Exam - Constitutional Vitals: Temp Pulse Resp BP Pulse Ox 99.2 F 76 15 114/63 99 04/21/17 12:00 04/21/17 14:00 04/21/17 14:00 04/21/17 14:00 04/21/17 12:00 Plan Follow up with: PRIMARY MD RAVI [Primary Care Provider] - 3-5 Days [facility] [Outside] - 7 Days Forms: Work/School Release Form Prescriptions: glipiZIDE XL [Glucotrol Xl] 10 mg PO QDDIAB #60 tablet Insulin NPH/Regular [NovoLIN 70/30] 25 unit SUB-Q BIDDIAB #1 vial Lisinopril [Zestril TAB] 20 mg PO QDAY #30 tablet metFORMIN [Glucophage] 850 mg PO BID #60 tablet Other Discharge Orders: Glucometer (Amb) Location: Determined By Patient Glucometer supplies[Amb] Location: Determined By Patient
[2017-04-22] MEDS ORDERED: GLUCOTROL XL PO SCH (08:00)
== END 2017-04-21 17:36 | disposition home or self-care (01) | DRG 637 ==
LOC: ED 07:28 → CC1 10:27
PROVIDERS: ADMIT Internal Medicine; ATTEND Internal Medicine
DX: E11.00 Type 2 diabetes mellitus with hyperosmolarity without nonketotic hyperglycemic-hyperosmolar coma (NKHHC) (principal); N17.0 Acute kidney failure with tubular necrosis; E86.0 Dehydration; I10 Essential (primary) hypertension; Z71.89 Other specified counseling
CPT/HCPCS: 36415; 80048; 81001; 82805; 82962; 83036; 83735; 84100; 85025; 90732; 96361; 96365; 96366; J1650; J1815; J7030

== ENCOUNTER 2019-04-03 06:28 | Emergency (ER) | payer SELFPAY ==
[2019-04-03 06:51] VITALS: BP 125/80
--- NOTE | 2019-04-03 07:11 | XRay Report ---
RIGHT HAND 3 VIEWS INDICATION / CLINICAL INFORMATION: Right hand pain and swelling. COMPARISON: None available. FINDINGS: BONES and JOINT(S): No acute fracture or subluxation. Mild osteoarthritis is seen throughout the DIP joints and at the interphalangeal joint of the thumb. No erosions are seen. Bone density is normal. SOFT TISSUES: Mild generalized edema is noted. ADDITIONAL FINDINGS: None. IMPRESSION: 1. Mild generalized edema along the right hand without an acute osseous abnormality. 2. Mild osteoarthritis. Signer Name: Josse Teague MD Signed: 04/03/2019 7:06 AM Workstation Name: [id number]
--- NOTE | 2019-04-03 07:46 | Emergency Department Report ---
Upper Extremity - HPI Chief Complaint: Extremity Injury, Upper Stated Complaint: SWOLLEN HAND Time Seen by Provider: 04/03/19 07:30 Upper Extremity: Right Hand, Right Middle Finger Occurred When: 1 Day Severity: mild Symptoms: Yes Pain with Movement, Yes Limited Range of Movement, Yes Swelling, No Deformity, No Numbness, No Weakness, No Bruising/Ecchymosis, No Laceration or Abrasion Other History: Patient is a 48-year-old male who presents ED complaining of right middle finger swelling and pain study yesterday. Patient denies any injuries trauma to the head. Patient states he has been lifting some heavy furniture on Tuesday and noticed the pain Tuesday afternoon. ED Review of Systems ROS: Stated complaint: SWOLLEN HAND Other details as noted in HPI Comment: All other systems reviewed and negative ED Past Medical Hx - Past Medical History Previous Medical History?: Yes Hx Congestive Heart Failure: No Hx Diabetes: Yes Hx Asthma: No Hx COPD: No Hx HIV: No Additional medical history: STD exposure, Jock itch - Surgical History Past Surgical History?: No - Social History Smoking Status: Never Smoker Substance Use Type: None - Medications Home Medications: Home Medications Medication Instructions Recorded Confirmed Last Taken Type Insulin NPH/Regular [NovoLIN 70/30] 25 unit SUB-Q BIDDIAB #1 vial 04/21/17 Unknown Rx Lisinopril [Zestril TAB] 20 mg PO QDAY #30 tablet 04/21/17 Unknown Rx glipiZIDE XL [Glucotrol Xl] 10 mg PO QDDIAB #60 tablet 04/21/17 Unknown Rx metFORMIN [Glucophage] 850 mg PO BID #60 tablet 04/21/17 Unknown Rx Cyclobenzaprine [Flexeril] 10 mg PO QHS PRN #15 tablet 04/03/19 Unknown Rx Ibuprofen [Motrin 800 MG tab] 800 mg PO Q8HR PRN #30 tablet 04/03/19 Unknown Rx Upper Extremity Exam - Exam General: Vital signs noted. No distress. Alert and acting appropriately. Head and Torso: No HEENT Abnormality, No Neck Tenderness, No Chest/Lungs Abnormality, No Abdominal Tenderness, No Back Tenderness Shoulder Exam: Yes Normal Range of Motion in Shoulder, No Shoulder Tenderness, No Clavicle Tenderness, No Shoulder Deformity, No AC Joint Tenderness Arm Exam: No Arm/Humerus Tenderness, No Arm Deformity Elbow: No Elbow Tenderness, No Normal Range of Motion in Elbow, No Elbow Deformity Forearm: No Forearm Tenderness, No Forearm Deformity, No Pain with Pronation, No Pain with Supination Wrist: Yes Normal ROM in Wrist, No Wrist Tenderness, No Wrist Deformity, No Snuffbox Tenderness, No Pain with Axial Thumb Compression Hand: Yes Normal ROM in Digit(s), No Hand Tenderness, No Hand Deformity, No Digit Tenderness (right middle finger mild swelling and tender, no bruising or ecchymoses), No Digit(s) Deformity, No Tendon Dysfunction CMS Exam: No Broken Skin, No Normal Distal Pulses, No Normal Capillary Refill, No Normal Distal Sensation ED Course Vital Signs 04/03/19 06:49 Temperature 97.9 F Pulse Rate 73 Respiratory 18 Rate Blood Pressure 125/80 O2 Sat by Pulse 99 Oximetry ED Medical Decision Making - Radiology Data Radiology results: report reviewed, image reviewed COMPARISON: None available. FINDINGS: BONES and JOINT(S): No acute fracture or subluxation. Mild osteoarthritis is seen throughout the DIP joints and at the interphalangeal joint of the thumb. No erosions are seen. Bone density is normal. SOFT TISSUES: Mild generalized edema is noted. ADDITIONAL FINDINGS: None. IMPRESSION: 1. Mild generalized edema along the right hand without an acute osseous abnormality. 2. Mild osteoarthritis. Signer Name: Josse Teague MD Signed: 04/03/2019 7:06 AM Workstation Name: [id number] Transcribed By: DAMIÁN Dictated By: Josse Teague MD Electronically Authenticated By: Josse Teague MD Signed Date/Time: 04/03/19 0706 - Medical Decision Making 48-year-old male presents to ED with finger pain most likely due to steroid to her arthritis and strain causing joint pain ED course: Patient received Toradol in ED. X-ray of the hand shows no acute fracture or dislocation. Discussed findings with the patient Vital signs are normal patient is in no acute distress Discussed with patient follow-up with primary care physician. Discussed the patient and take medications as prescribed. Patient has no neurological deficit. Patient is alert and oriented 3 and understands all instructions given. Discussed drowsiness effect of Flexeril makes her drowsy and not to operate machinery while taking flexeril Critical care attestation.: If time is entered above; I have spent that time in minutes in the direct care of this critically ill patient, excluding procedure time. ED Disposition Clinical Impression: Finger pain, right, Osteoarthritis Disposition: DC-01 TO HOME OR SELFCARE Is pt being admited?: No Does the pt Need Aspirin: No Condition: Stable Instructions: Osteoarthritis (ED), Arthralgia (ED), Finger Sprain (ED) Additional Instructions: Make sure to follow up with the primary care physician as discussed. Take all your medications as you've been prescribed. If you have any worsening symptoms or develop new symptoms please return to ED immediately. Referrals: [facility] [Provider Group] - 3-5 Days Forms: Accompanied Note, Work/School Release Form(ED) Time of Disposition: 08:01
[2019-04-03] MEDS ORDERED: TORADOL IM ONE (07:50)
== END 2019-04-03 08:07 | disposition home or self-care (01) ==
LOC: ED 06:28
DX: M79.644 Pain in right finger(s) (principal); E11.9 Type 2 diabetes mellitus without complications; Z79.4 Long term (current) use of insulin; Z79.84 Long term (current) use of oral hypoglycemic drugs; Z79.899 Other long term (current) drug therapy
CPT/HCPCS: 73130; 96372; 99283; J1885

== ENCOUNTER 2020-03-23 04:13 | Emergency (ER) | payer SELFPAY ==
[2020-03-23 04:26] VITALS: BP 113/70
--- NOTE | 2020-03-23 07:56 | XRay Report ---
LEFT FOOT 3 VIEWS INDICATION / CLINICAL INFORMATION: foot pain. COMPARISON: None available. FINDINGS: Moderate degenerative arthrosis is seen within the first MTP joint. No fracture, dislocation or soft tissue swelling is seen within the left foot. Signer Name: Mahad Rodriguez MD Signed: 03/23/2020 7:52 AM Workstation Name: [id number]
--- NOTE | 2020-03-23 08:18 | Emergency Department Report ---
ED Lower Extremity HPI - General Chief Complaint: Extremity Injury, Lower Stated Complaint: LEFT FOOT ARTHRITIS Time Seen by Provider: 03/23/20 07:55 Source: patient Mode of arrival: Ambulatory Limitations: No Limitations - History of Present Illness Initial Comments: This is a 49-year-old male nontoxic, well nourished in appearance, no acute signs of distress presents to the ED with c/o of acute on chronic intermittent left great toe pain 1 week. Stated has been treated for gout which swelling and redness has resolved but pain is still intermittent there. Patient denies any trauma. Denies f/o with orthopedic. Patient denies any numbness, tingling, fever, chills, nausea, vomiting, chest pain, shortness of breath, headache, stiff neck. Patient denies any joint swelling or joint redness. Patient denies decreased range of motion. Patient denies any abnormal or decreased gait due to pain. Patient denies any allergies. MD Complaint: foot injury -: week(s) Injury: Toes: Left Severity: mild Severity scale (0 -10): 3 Improves With: nothing Worsens With: nothing Associated Symptoms: ambulatory. denies: snap/pop sensation, swelling, numbn ess, tingling, unable to bear weight, able to partially bear weight - Related Data Previous Rx's Medication Instructions Recorded Last Taken Type Insulin NPH/Regular [NovoLIN 70/30] 25 unit SUB-Q BIDDIAB #1 vial 04/21/17 Unknown Rx glipiZIDE XL [Glucotrol Xl] 10 mg PO QDDIAB #60 tablet 04/21/17 Unknown Rx lisinopriL [Zestril TAB] 20 mg PO QDAY #30 tablet 04/21/17 Unknown Rx metFORMIN [Glucophage] 850 mg PO BID #60 tablet 04/21/17 Unknown Rx Cyclobenzaprine [Flexeril] 10 mg PO QHS PRN #15 tablet 04/03/19 Unknown Rx Ibuprofen [Motrin 800 MG tab] 800 mg PO Q8HR PRN #30 tablet 04/03/19 Unknown Rx Allergies Allergy/AdvReac Type Severity Reaction Status Date / Time No Known Allergies Allergy Verified 04/03/19 06:44 ED Review of Systems ROS: Stated complaint: LEFT FOOT ARTHRITIS Other details as noted in HPI Constitutional: denies: chills, fever Eyes: denies: eye pain, eye discharge, vision change ENT: denies: ear pain, throat pain Respiratory: denies: cough, shortness of breath, wheezing Cardiovascular: denies: chest pain, palpitations Endocrine: no symptoms reported Gastrointestinal: denies: abdominal pain, nausea, diarrhea Genitourinary: denies: urgency, dysuria Musculoskeletal: denies: back pain, joint swelling, arthralgia Skin: denies: rash, lesions Neurological: denies: headache, weakness, paresthesias Psychiatric: denies: anxiety, depression Hematological/Lymphatic: denies: easy bleeding, easy bruising ED Past Medical Hx - Past Medical History Previous Medical History?: Yes Hx Congestive Heart Failure: No Hx Diabetes: Yes Hx Asthma: No Hx COPD: No Hx HIV: No Additional medical history: GOUT - Surgical History Past Surgical History?: No - Social History Smoking Status: Never Smoker Substance Use Type: None - Medications Home Medications: Home Medications Medication Instructions Recorded Confirmed Last Taken Type Insulin NPH/Regular [NovoLIN 70/30] 25 unit SUB-Q BIDDIAB #1 vial 04/21/17 Unknown Rx glipiZIDE XL [Glucotrol Xl] 10 mg PO QDDIAB #60 tablet 04/21/17 Unknown Rx lisinopriL [Zestril TAB] 20 mg PO QDAY #30 tablet 04/21/17 Unknown Rx metFORMIN [Glucophage] 850 mg PO BID #60 tablet 04/21/17 Unknown Rx Cyclobenzaprine [Flexeril] 10 mg PO QHS PRN #15 tablet 04/03/19 Unknown Rx Ibuprofen [Motrin 800 MG tab] 800 mg PO Q8HR PRN #30 tablet 04/03/19 Unknown Rx ED Physical Exam - General Limitations: No Limitations General appearance: alert, in no apparent distress - Head Head exam: Present: atraumatic, normocephalic - Extremities Exam Extremities exam: Present: normal inspection, full ROM, tenderness, normal capillary refill. Absent: joint swelling, calf tenderness - Expanded Lower Extremity Exam Left Hip exam: Present: normal inspection, full ROM. Absent: tenderness, swelling Upper Leg exam: Present: normal inspection, full ROM. Absent: tenderness, swelling Knee exam: Present: normal inspection, full ROM. Absent: tenderness, swelling Lower Leg exam: Present: normal inspection, full ROM. Absent: tenderness, swelling Ankle exam: Present: normal inspection, full ROM. Absent: tenderness, swelling Foot/Toe exam: Present: normal inspection, full ROM, tenderness. Absent: swelling, abrasion, laceration, ecchymosis, deformity, crepidus, dislocation, erythema, amputation, puncture wound, foreign body, calcaneal tenderness, tenderness at base of 5th metatarsal, nail avulsion, subungual hematoma Neuro vascular tendon exam: Present: no vascular compromise Gait: Positive: observed and normal 1 - pain here - Back Exam Back exam: Present: normal inspection, full ROM - Neurological Exam Neurological exam: Present: alert, oriented X3, normal gait - Psychiatric Psychiatric exam: Present: normal affect, normal mood - Skin Skin exam: Present: warm, dry, intact, normal color. Absent: rash ED Course Vital Signs 03/23/20 04:22 Temperature 98.7 F Pulse Rate 68 Respiratory 20 Rate Blood Pressure 113/70 O2 Sat by Pulse 99 Oximetry - Reevaluation(s) Reevaluation #1: 03/23/20 08:23 Patient is speaking in full sentences with no signs of distress noted. ED Lower Extremity MDM - Radiology Data Referring Physician: JJ ORTIZ Patient Name: NILSON MCDUFFIE Date of : 1970 Sex: Male Report Date: 2020-03-23 Report Status: [place] [address] XRay Report Signed Patient: NILSON MCDUFFIE MR#: [id number] : 1970 Acct:[id number] Age/Sex: 49 / M ADM Date: 03/23/20 Loc: ED Attending Dr: Ordering Physician: JJ ORTIZ MD Date of Service: 03/23/20 Procedure(s): XR foot 3+V LT Accession Number(s): [id number] cc: JJ ORTIZ MD Fluoro Time In Minutes: LEFT FOOT 3 VIEWS INDICATION / CLINICAL INFORMATION: foot pain. COMPARISON: None available. FINDINGS: Moderate degenerative arthrosis is seen within the first MTP joint. No fracture, dislocation or soft tissue swelling is seen within the left foot. Signer Name: Mahad Rodriguez MD Signed: 03/23/2020 7:52 AM Workstation Name: [id number] Transcribed By: TL Dictated By: Mahad Rodriguez MD Electronically Authenticated By: Mahad Rodriguez MD Signed Date/Time: 03/23/20751 DD/ 0 TD/TT: - Medical Decision Making This is a 49-year-old male that presents with DJD of 1st MTP joint. Patient is stable and was examined by me. I referred patient to an orthopedic doctor for further evaluation for possible MRI. X-ray has been obtained (prior to my i nterview by RN) and dictated by the radiologist. Patient is notified of the x- ray report with noted by the patient. Patient does have normal gait with no tenderness and no joint swelling. No ecchymosis. no joint redness or swelling. Not warm to touch. No signs of cellulites present. At time of discharge, the patient does not seem toxic or ill in appearance. No acute signs of distress noted. Patient agrees to discharge treatment plan of care. No further questions noted by the patient. Critical care attestation.: If time is entered above; I have spent that time in minutes in the direct care of this critically ill patient, excluding procedure time. ED Disposition Clinical Impression: Arthritis of metatarsophalangeal (MTP) joint of great toe Disposition: Z-07 MED SCREENING EXAM-LEFT Is pt being admited?: No Does the pt Need Aspirin: No Condition: Stable Instructions: Osteoarthritis (ED) Additional Instructions: Follow-up with a orthopedic doctor in 3-5 days or if symptoms worsen and continue return to emergency room as soon as possible. You can try taking [id number] Tylenol arthritis for pain as needed and as directed in the medication label. Referrals: PRIMARY MD RAVI [Primary Care Provider] - 3-5 Days ZAC MICHAEL MD [Staff Physician] - 3-5 Days
== END 2020-03-23 08:27 | disposition left against medical advice (07) ==
LOC: ED 04:13
DX: M79.672 Pain in left foot (principal); Z53.21 Procedure and treatment not carried out due to patient leaving prior to being seen by health care provider

== ENCOUNTER 2021-01-23 06:59 | Emergency (ER) | payer SELFPAY ==
[2021-01-23 09:10] VITALS: BP 135/86
[2021-01-23] MEDS ORDERED: dexAMETHasone 4 MG/ML VIAL IM ONE (09:11)
--- NOTE | 2021-01-23 09:14 | Emergency Department Report ---
ED Extremity Problem HPI - General Chief complaint: Extremity Problem,Nontraumatic Stated complaint: LT KNEE PAIN Time Seen by Provider: 01/23/21 08:54 Source: patient Mode of arrival: Ambulatory Limitations: No Limitations - History of Present Illness Initial comments: 50-year-old male with a past medical history of diabetes, and hypertension presents to the ER today with complaints of left knee pain. Patient states that he has a history of issues with his left knee. He states that about 6 years ago he "blew out" his left knee. He states that he followed up with an environmental air specialist at the time and he was told that he needed surgery but decided not to have it done. He states that he had had issues with his knee for about 3 years but about a week ago started having pain to the anterior aspect of the left knee with associated swelling. He states that he thinks it could be related to his work because he states that he does lots of walking and standing at work. Patient states that typically whenever he gets a flareup of his knee pain he comes to the ER and get a shot of steroids and that gets it better. He reports a history of gout but he states that his gout "got better" and he has not any issues with gout in a while. He denies any bruising, erythema, calf pain, shortness of breath or any other associated symptoms MD Complaint: joint swelling, joint paint -: Gradual, week(s) (1) - Related Data Previous Rx's Medication Instructions Recorded Last Taken Type Insulin NPH/Regular [NovoLIN 70/30] 25 unit SUB-Q BIDDIAB #1 vial 04/21/17 Unknown Rx glipiZIDE XL [Glucotrol Xl] 10 mg PO QDDIAB #60 tablet 04/21/17 Unknown Rx lisinopriL [Zestril TAB] 20 mg PO QDAY #30 tablet 04/21/17 Unknown Rx metFORMIN [Glucophage] 850 mg PO BID #60 tablet 04/21/17 Unknown Rx Cyclobenzaprine [Flexeril] 10 mg PO QHS PRN #15 tablet 04/03/19 Unknown Rx Ibuprofen [Motrin 800 MG tab] 800 mg PO Q8HR PRN #30 tablet 01/23/21 Unknown Rx Tramadol HCl/Acetaminophen 1 each PO Q4H PRN #12 tablet 01/23/21 Unknown Rx [Ultracet Tablet] Allergies Allergy/AdvReac Type Severity Reaction Status Date / Time No Known Allergies Allergy Verified 04/03/19 06:44 ED Review of Systems ROS: Stated complaint: LT KNEE PAIN Other details as noted in HPI Comment: All other systems reviewed and negative Constitutional: denies: chills, fever Eyes: denies: eye pain, eye discharge, vision change ENT: denies: ear pain, throat pain Respiratory: denies: cough, shortness of breath, SOB with exertion, SOB at rest, wheezing Cardiovascular: denies: chest pain, palpitations, edema, syncope, paroxysmal nocturnal dyspnea Gastrointestinal: denies: abdominal pain, nausea, vomiting, diarrhea, constipation, hematemesis, melena, hematochezia Musculoskeletal: joint swelling, arthralgia. denies: back pain Skin: denies: rash, lesions Neurological: denies: headache, weakness, paresthesias Psychiatric: denies: anxiety, depression, auditory hallucinations, visual hallucinations, homicidal thoughts, suicidal thoughts Hematological/Lymphatic: denies: easy bleeding, easy bruising ED Past Medical Hx - Past Medical History Previous Medical History?: Yes Hx Congestive Heart Failure: No Hx Diabetes: Yes Hx Asthma: No Hx COPD: No Hx HIV: No Additional medical history: GOUT - Surgical History Past Surgical History?: No - Social History Smoking Status: Never Smoker Substance Use Type: None - Medications Home Medications: Home Medications Medication Instructions Recorded Confirmed Last Taken Type Insulin NPH/Regular [NovoLIN 70/30] 25 unit SUB-Q BIDDIAB #1 vial 04/21/17 Unknown Rx glipiZIDE XL [Glucotrol Xl] 10 mg PO QDDIAB #60 tablet 04/21/17 Unknown Rx lisinopriL [Zestril TAB] 20 mg PO QDAY #30 tablet 04/21/17 Unknown Rx metFORMIN [Glucophage] 850 mg PO BID #60 tablet 04/21/17 Unknown Rx Cyclobenzaprine [Flexeril] 10 mg PO QHS PRN #15 tablet 04/03/19 Unknown Rx Ibuprofen [Motrin 800 MG tab] 800 mg PO Q8HR PRN #30 tablet 01/23/21 Unknown Rx Tramadol HCl/Acetaminophen 1 each PO Q4H PRN #12 tablet 01/23/21 Unknown Rx [Ultracet Tablet] ED Physical Exam - General Limitations: No Limitations General appearance: alert, in no apparent distress - Head Head exam: Present: atraumatic, normocephalic, normal inspection - Eye Eye exam: Present: normal appearance, PERRL, EOMI Pupils: Present: normal accommodation - ENT ENT exam: Present: normal exam, mucous membranes moist - Neck Neck exam: Present: normal inspection, full ROM - Respiratory Respiratory exam: Present: normal lung sounds bilaterally. Absent: respiratory distress, wheezes, rales, rhonchi - Cardiovascular Cardiovascular Exam: Present: regular rate, normal rhythm, normal heart sounds - Expanded Lower Extremity Exam Left Knee exam: Present: full ROM (He has full range of motion of the knee but with increased pain on full flexion.), tenderness (Mainly to the anterior aspect of the knee, and mildly medial aspect of the knee), swelling (Mild swelling mainly to the anterior aspect of the knee), full knee extension. Absent: abrasion, laceration, ecchymosis, deformity, crepidus, dislocation, erythema Neuro vascular tendon exam: Present: no vascular compromise Gait: Positive: observed and normal - Neurological Exam Neurological exam: Present: alert, oriented X3, CN II-XII intact, normal gait - Psychiatric Psychiatric exam: Present: normal affect, normal mood - Skin Skin exam: Present: intact ED Course Vital Signs 01/23/21 07:20 Temperature 98.8 F Pulse Rate 68 Respiratory 18 Rate Blood Pressure 135/86 O2 Sat by Pulse 99 Oximetry Critical care attestation.: If time is entered above; I have spent that time in minutes in the direct care of this critically ill patient, excluding procedure time. ED Disposition Clinical Impression: Knee pain, left Disposition: DC-01 TO HOME OR SELFCARE Is pt being admited?: No Does the pt Need Aspirin: No Condition: Stable Instructions: Chronic Knee Pain, Adult, [id number] Additional Instructions: Take the motrin and the ultram as prescribed. Elevate your leg as often as possible the next couple days. I recommend that you follow up with incident response specialist next week. Return to ED if worse. Prescriptions: Ibuprofen [Motrin 800 MG tab] 800 mg PO Q8HR PRN #30 tablet PRN Reason: Pain Tramadol HCl/Acetaminophen [Ultracet Tablet] 1 each PO Q4H PRN #12 tablet PRN Reason: Pain , Severe (7-10) Referrals: ZAC MICHAEL MD [Staff Physician] - 3-5 Days Forms: Work/School Release Form(ED) Time of Disposition: 09:14
== END 2021-01-23 18:50 | disposition home or self-care (01) ==
LOC: ED 06:59
DX: M25.562 Pain in left knee (principal); E11.9 Type 2 diabetes mellitus without complications; Z79.1 Long term (current) use of non-steroidal anti-inflammatories (NSAID); Z79.4 Long term (current) use of insulin; Z79.899 Other long term (current) drug therapy
CPT/HCPCS: 96372; 99281; J1100

== ENCOUNTER 2021-05-03 04:54 | Emergency (ER) | payer OTHER ==
[2021-05-03 05:47] VITALS: BP 122/76
--- NOTE | 2021-05-03 06:43 | XRay Report ---
CHEST 2 VIEWS INDICATION / CLINICAL INFORMATION: cough and congestion. FINDINGS: SUPPORT DEVICES: None. HEART / MEDIASTINUM: No significant abnormality. LUNGS / PLEURA: Patchy bilateral airspace pneumonia within the mid and lower lungs bilaterally. Signer Name: Win Wood MD Signed: 05/03/2021 6:39 AM Workstation Name: [id number]
--- NOTE | 2021-05-03 10:48 | Emergency Department Report ---
- General Chief Complaint: Upper Respiratory Infection Stated Complaint: COUGH/HEADACHE Time Seen by Provider: 05/03/21 10:43 Source: patient Mode of arrival: Ambulatory Limitations: No Limitations - History of Present Illness Initial Comments: 51-year-old obese -[place] male presents to the emergency room complaining of cough nasal congestion chest congestion for 3 days. Patient states is been taken snel-eut-hrtadsn sinus medicine. Patient denies any fever. Denies any shortness of breath no nausea no vomiting no loss of taste or smell no diarrhea. Patient is unvaccinated and unaware of any possible exposure. Patient has a history of diabetes high cholesterol and is currently on hypertensive medicine for her protection. MD Complaint: cough, nasal congestion Onset/Timin -: days(s) Severity: mild Severity scale (0 -10): 2 Quality: aching Consistency: intermittent Improves With: nothing Worsens With: nothing Context: other (Unvaccinated possible exposure to Covid) Associated Symptoms: headache, nasal congestion, cough Treatments Prior to Arrival: none - Related Data Previous Rx's Medication Instructions Recorded Last Taken Type Insulin NPH/Regular [NovoLIN 70/30] 25 unit SUB-Q BIDDIAB #1 vial 04/21/17 Unknown Rx glipiZIDE XL [Glucotrol Xl] 10 mg PO QDDIAB #60 tablet 04/21/17 Unknown Rx lisinopriL [Zestril TAB] 20 mg PO QDAY #30 tablet 04/21/17 Unknown Rx metFORMIN [Glucophage] 850 mg PO BID #60 tablet 04/21/17 Unknown Rx Cyclobenzaprine [Flexeril] 10 mg PO QHS PRN #15 tablet 04/03/19 Unknown Rx Ibuprofen [Motrin 800 MG tab] 800 mg PO Q8HR PRN #30 tablet 01/23/21 Unknown Rx Tramadol HCl/Acetaminophen 1 each PO Q4H PRN #12 tablet 01/23/21 Unknown Rx [Ultracet Tablet] Azithromycin [Zithromax Z-RAMANA] 250 mg PO DAILY #6 tab 05/03/21 Unknown Rx Allergies Allergy/AdvReac Type Severity Reaction Status Date / Time No Known Allergies Allergy Verified 04/03/19 06:44 ED Review of Systems ROS: Stated complaint: COUGH/HEADACHE Other details as noted in HPI Comment: All other systems reviewed and negative ED Past Medical Hx - Past Medical History Previous Medical History?: Yes Hx Congestive Heart Failure: No Hx Diabetes: Yes Hx Asthma: No Hx COPD: No Hx HIV: No Additional medical history: GOUT - Surgical History Past Surgical History?: No - Social History Smoking Status: Never Smoker Substance Use Type: None - Medications Home Medications: Home Medications Medication Instructions Recorded Confirmed Last Taken Type Insulin NPH/Regular [NovoLIN 70/30] 25 unit SUB-Q BIDDIAB #1 vial 04/21/17 Unknown Rx glipiZIDE XL [Glucotrol Xl] 10 mg PO QDDIAB #60 tablet 04/21/17 Unknown Rx lisinopriL [Zestril TAB] 20 mg PO QDAY #30 tablet 04/21/17 Unknown Rx metFORMIN [Glucophage] 850 mg PO BID #60 tablet 04/21/17 Unknown Rx Cyclobenzaprine [Flexeril] 10 mg PO QHS PRN #15 tablet 04/03/19 Unknown Rx Ibuprofen [Motrin 800 MG tab] 800 mg PO Q8HR PRN #30 tablet 01/23/21 Unknown Rx Tramadol HCl/Acetaminophen 1 each PO Q4H PRN #12 tablet 01/23/21 Unknown Rx [Ultracet Tablet] Azithromycin [Zithromax Z-RAMANA] 250 mg PO DAILY #6 tab 05/03/21 Unknown Rx ED Physical Exam - General Limitations: No Limitations General appearance: alert, in no apparent distress - Head Head exam: Present: atraumatic, normocephalic - Eye Eye exam: Present: normal appearance - ENT ENT exam: Present: mucous membranes moist - Neck Neck exam: Present: normal inspection - Respiratory Respiratory exam: Present: normal lung sounds bilaterally. Absent: respiratory distress - Cardiovascular Cardiovascular Exam: Present: regular rate - GI/Abdominal GI/Abdominal exam: Present: soft, normal bowel sounds - Back Exam Back exam: Present: normal inspection, full ROM - Neurological Exam Neurological exam: Present: alert, oriented X3, normal gait - Psychiatric Psychiatric exam: Present: normal affect, normal mood ED Course Vital Signs 05/03/21 05:37 Temperature 98.5 F Pulse Rate 65 Respiratory 18 Rate Blood Pressure 122/76 O2 Sat by Pulse 97 Oximetry ED Medical Decision Making - Radiology Data Radiology results: report reviewed Study Comments [facility] [address] [place] [address] XRay Report Signed Patient: NILSON MCDUFFIE MR#: [id number] : 1970 Acct:[id number] Age/Sex: 51 / M ADM Date: 05/03/21 Loc: ED Attending Dr: Ordering Physician: ODALYS MARTIN MD Date of Service: 05/03/21 Procedure(s): XR chest routine 2V Accession Number(s): [id number] cc: ED MD MARIO Fluoro Time In Minutes: CHEST 2 VIEWS INDICATION / CLINICAL INFORMATION: cough and congestion. FINDINGS: SUPPORT DEVICES: None. HEART / MEDIASTINUM: No significant abnormality. LUNGS / PLEURA: Patchy bilateral airspace pneumonia within the mid and lower lungs bilaterally. Signer Name: Win Wood MD Signed: 05/03/2021 6:39 AM Workstation Name: [id number] Transcribed By: BC Dictated By: Win Wood MD Electronically Authenticated By: Win Wood MD Signed Date/Time: 05/03/21638 DD/ 8 TD/TT: - Medical Decision Making 51-year-old obese -[place] male presents to the emergency room complaining of cough nasal congestion chest congestion for 3 days. Patient states is been taken [id number]-[id number]-pyvdhsd sinus medicine. Patient denies any fever. Denies any shortness of breath no nausea no vomiting no loss of taste or smell no diarrhea. Patient is unvaccinated and unaware of any possible exposure. Patient has a history of diabetes high cholesterol and is currently on hypertensive medicine for her protection. Chest x-ray shows atypical bilateral patchy infiltrate consistent with Covid pneumonia. Patient be placed on Zithromax instructions on prevention protection and frequent ask questions of Covid has been given. Patient can take Tylenol or ibuprofen. He is to complete his antibiotic for Zithromax for protection of possible underlying bacterial infection. Patient is to go get Covid test and quarantine for the next 14 days Critical care attestation.: If time is entered above; I have spent that time in minutes in the direct care of this critically ill patient, excluding procedure time. ED Disposition Clinical Impression: Pneumonia due to COVID-19 virus Disposition: HOME / SELF CARE / HOMELESS Is pt being admited?: No Does the pt Need Aspirin: No Condition: Stable Instructions: Bacterial Pneumonia (ED), COVID-19 Frequently Asked Questions, COVID-19: How to Protect Yourself and Others - CDC, Prevent the Spread of COVID- 19 if You Are Sick - [facility] Additional Instructions: Your symptoms appear most consistent with a nonspecific viral syndrome. However, given this current pandemic, COVID-19 is in the differential of possibilities. I do recommend outpatient Covid 19 testing. In the meantime, isolate/quarantine yourself and stay away from anyone who is elderly, immunocompromised or chronically ill. You can use ibuprofen every 6-8 hours and Tylenol every 4-8 hours, using the dosing on the back of the bottle, as needed for any fever or body aches. Return to the emergency department with any worsening of your symptoms, development of chest pain or shortness of breath, or with any acute distress. Prescriptions: Azithromycin [Zithromax Z-RAMANA] 250 mg PO DAILY #6 tab Referrals: PRIMARY CARE, [Primary Care Provider] - 3-5 Days Forms: Work/School Release Form(ED) Time of Disposition: 10:53
== END 2021-05-03 11:15 | disposition home or self-care (01) ==
LOC: ED 04:54
DX: U07.1 COVID-19 (principal); J12.89 Other viral pneumonia; M10.9 Gout, unspecified; E11.9 Type 2 diabetes mellitus without complications; Z79.899 Other long term (current) drug therapy
CPT/HCPCS: 71046